=== PATIENT | female | born 1945 | race Caucasian/White ===

== ENCOUNTER → 2018-08-26 11:14 | Outpatient (CLI) | payer MEDICARE, OTHER, SELFPAY ==
--- NOTE | 2018-08-26 | DI.MG.S_ITS ---
BILATERAL DIGITAL SCREENING MAMMOGRAM 3D/2D WITH CAD: 08/26/2018 CLINICAL: Routine screening. Comparison is made to exams dated: 11/01/2016 mammogram, 07/28/2014 mammogram, and 12/22/2012 mammogram - [facility]. There are scattered fibroglandular elements in both breasts. Current study was also evaluated with a Computer Aided Detection (CAD) system. No significant masses, calcifications, or other findings are seen in either breast. There has been no significant interval change. IMPRESSION: NEGATIVE There is no mammographic evidence of malignancy. A 1 year screening mammogram is recommended. This exam was interpreted at Station ID: [id number]. NOTE: For mammograms, a report in lay terms will be sent to the patient. Approximately 15% of breast malignancies will not be visualized mammographically. In the management of a palpable breast mass, a negative mammogram must not discourage biopsy of a clinically suspicious lesion. Electronically Signed By: Ky marin/enrico:08/26/2018 12:43:01 letter sent: Normal Exam ACR BI-RADS Category 1: Negative 3341F
== END ==
PROVIDERS: Family Provider Internal Medicine; PCP Internal Medicine; Visit Provider Internal Medicine
DX: Z12.31 Encounter for screening mammogram for malignant neoplasm of breast (principal)
CPT/HCPCS: 77063; 77067

== ENCOUNTER → 2019-07-13 10:19 | Outpatient (CLI) | payer MEDICARE, OTHER, SELFPAY ==
--- NOTE | 2019-07-13 | DI.RAD.S_ITS ---
PROCEDURE: XR CHEST 2V INDICATIONS: ACUTE BRONCHITIS TECHNIQUE: 2 views of the chest were acquired. COMPARISON: [facility], , CHEST 2 VIEW, 10/17/2011, 9:19. FINDINGS: Surgical changes and devices: None. Lungs and pleura: Lungs are clear. No pleural effusions or pneumothorax. Mediastinum: Mediastinal contours are normal. Heart size is normal. Bones and chest wall: No suspicious bony abnormalities. Soft tissues appear unremarkable. IMPRESSION: No evidence acute pulmonary process. Dictated by: Julien Jean Baptiste M.D. on 07/13/2019 at 17:04 Approved by: Julien Jean Baptiste M.D. on 07/13/2019 at 17:05
== END ==
PROVIDERS: PCP Internal Medicine; Visit Provider Student in an Organized Health Care Education/Training Program
DX: J20.9 Acute bronchitis, unspecified (principal)
CPT/HCPCS: 71046

== ENCOUNTER → 2019-08-27 09:53 | Outpatient (CLI) | payer MEDICARE, OTHER, SELFPAY ==
--- NOTE | 2019-08-27 | DI.MG.S_ITS ---
BILATERAL DIGITAL SCREENING MAMMOGRAM 3D/2D WITH CAD: 08/27/2019 CLINICAL: Routine screening. Comparison is made to exams dated: 08/26/2018 mammogram, 11/01/2016 mammogram, and 07/28/2014 mammogram - [facility]. There are scattered fibroglandular elements in both breasts. Current study was also evaluated with a Computer Aided Detection (CAD) system. No significant masses, calcifications, or other findings are seen in either breast. There has been no significant interval change. IMPRESSION: NEGATIVE There is no mammographic evidence of malignancy. A 1 year screening mammogram is recommended. This exam was interpreted at Station ID: [id number]. NOTE: For mammograms, a report in lay terms will be sent to the patient. Approximately 15% of breast malignancies will not be visualized mammographically. In the management of a palpable breast mass, a negative mammogram must not discourage biopsy of a clinically suspicious lesion. Electronically Signed By: Ky marin/enrico:08/27/2019 18:26:13 letter sent: Normal Exam ACR BI-RADS Category 1: Negative 3341F
== END ==
PROVIDERS: PCP Student in an Organized Health Care Education/Training Program; Visit Provider Student in an Organized Health Care Education/Training Program
DX: Z12.31 Encounter for screening mammogram for malignant neoplasm of breast (principal)
CPT/HCPCS: 77063; 77067

== ENCOUNTER 2019-09-23 21:26 | Emergency (ER) | payer MEDICARE, OTHER, SELFPAY ==
--- NOTE | 2019-09-23 21:31 | ED.UPPEXIN ---
HPI - Extremity Injury (Upper) General Chief Complaint: Fall Stated Complaint: right arm injury, thinks broken. Time Seen by Provider: 09/23/19 21:31 Source: patient and family Mode of arrival: Wheelchair Limitations: no limitations History of Present Illness HPI narrative: This is a 74-year-old female who comes in with complaint of right upper extremity fracture. Patient was on her home. She states she had a couple drinks of champagne earlier today with family while celebrating together. She was walking through her [place] to go into the house when she slipped and fell forward. She has deformity of her right upper arm as well as an abrasion on her right knee. Patient does not think that she hit her head she denies neck pain or back pain. She denies chest pain. She does feel nauseated. Patient denies any medications other than estradiol which they are slowly weaning her off. She has not any aspirin, Plavix or other blood thinners. She has had shoulder surgery on the left with Dr. Obando. She denies any other surgeries or medical issues. She is accompanied by her . Carin Vazquez is her primary care. Related Data Home Medications Medication Instructions Recorded Confirmed ESTRADIOL (Estrace) 0 PO Q DAY #0 08/31/06 Previous Rx's Medication Instructions Recorded cephalexin [Keflex] 500 mg PO QID #40 cap 09/24/19 oxycodone-acetaminophen [Percocet] 1 tab PO Q4-6H PRN #20 tab 09/24/19 Allergies Allergy/AdvReac Type Severity Reaction Status Date / Time venlafaxine [From EFFEXOR] Allergy Mild nightmares Unverified 12/18/17 12:58 Review of Systems Review of Systems ROS Unobtainable: All systems reviewed & are unremarkable except as noted in HPI and below Patient History Social History Smoking Status: Former smoker Exam Narrative Exam Narrative: GEN: Patient appears in moderate distress. HEAD: No evidence of trauma, no raccoon/Delcid sign. NECK: Nontender, painless range of motion, trachea midline EYES: PERRLA, EOMI ENT: External inspection normal, trachea is midline, TM's are normal no hemotypanum, Nares are clear, no septal hematoma, no dental or oral injury, airway is normal and with normal occlusion, No bony tenderness RESP: Chest is nontender and has symmetric movement, no ecchymosis, breath sounds are normal no crackles, wheezes or rales CVS: Heart sounds are normal, no murmur noted, No JVD. ABG/GI: Nontender, soft, normal bowel sounds, no distention, no organomegaly, pelvic rock is negative. NEURO: Oriented AOx3, neuro is grossly intact, sensation and motor is normal all 4 extremities moving, cranial nerves II through XII are intact, GCS is 15 PSYCH: Normal mood and affect SKIN: Intact, warm and dry, no crepitus and without decubitus BACK: No CVA tenderness, no vertebral tenderness, no step-off's, no crepitus EXT: Patient has deformity of her right upper extremity mid humeral region patient able to lift the upper portion of the bone but the lower arm does not move with it, hips are nontender, patient has a abrasion/laceration of her right knee into the subcutaneous, do not see any bony involvement, patient has full range of motion without any bony tenderness, no pedal edema, normal color and temperature, normal range of motion of extremities with normal tendon exam except for right humerus. Patient has equal tyre retreader bilaterally 2+ radial pulses bilaterally. Patient has sensation to touch in all 5 fingers on the right as well as full extension and flexion, 2+ pulses in all four extremities Initial Vital Signs Initial Vital Signs: Vital Signs Temperature 96.9 F L 09/23/19 21:44 Pulse Rate 77 09/23/19 21:44 Respiratory Rate 18 09/23/19 21:44 Blood Pressure 166/111 H 09/23/19 21:44 Pulse Oximetry 98 09/23/19 21:44 Procedures Laceration Repair Laceration 1: Site: lower extremity (right knee) Size (cm): 2.4 Description: flap and irregular Depth: simple, single layer Local Anesthetic: lidocaine 1% Amount of anesthesia used (mL): 7 Pre-repair: wound explored, irrigated extensively and deep structures intact Skin layer closed with: nylon Size (cm): 4-0 Number of sutures: 8 Technique: simple, interrupted Scores GCS [place] coma scale eye opening: Spontaneous [place] coma scale verbal response: Orientated [place] coma scale motor response: Obey commands [place] coma scale total score: 15 Course Orders Ordered: ED Orders 09/23/19 21:40 XR humerus RT 2V Stat XR knee RT 3V Stat XR shoulder RT min 2V Stat Discontinued Medications Cefazolin Sodium (Keflex 250 Mg Prepack) 1 bottle MISC SEEINSTR ONE Stop: 09/24/19 00:37 Last Admin: 09/24/19 00:45 Dose: 500 mg Documented by: DANYEL Lidocaine/Sodium Bicarbonate (Buffered Lidocaine 10 Ml Syr) 10 ml INJ NOW ONE Stop: 09/23/19 23:55 Last Admin: 09/23/19 23:58 Dose: 10 ml Documented by: ISHA Morphine Sulfate (Morphine) 2 mg IV NOW ONE Stop: 09/23/19 21:42 Last Admin: 09/23/19 21:56 Dose: 2 mg Documented by: ISHA Morphine Sulfate (Morphine) 4 mg IV NOW ONE Stop: 09/23/19 22:43 Last Admin: 09/23/19 22:46 Dose: 4 mg Documented by: ISHA Ondansetron HCl (Zofran) 4 mg IV NOW ONE Stop: 09/23/19 21:42 Last Admin: 09/23/19 21:55 Dose: 4 mg Documented by: ISHA Oxycodone/Acetaminophen (Percocet 5/325) 2 tab PO NOW ONE Stop: 09/24/19 00:02 Last Admin: 09/24/19 00:09 Dose: 2 tab Documented by: COLLEENFARL Oxycodone/Acetaminophen (Endocet 5/325 Prepack) 1 bottle MISC SEEINSTR ONE Stop: 09/24/19 00:37 Last Admin: 09/24/19 00:45 Dose: 1 bottle Documented by: DANYEL Vital Signs Vital signs: Vital Signs - 8 hr 09/23/19 21:44 09/24/19 00:44 Temperature 96.9 F L Pulse Rate 77 82 Respiratory Rate 18 19 Blood Pressure 166/111 H Blood Pressure [Left Arm] 98/65 Pulse Oximetry 98 98 MDM - Extremity Injury (Upper) Imaging Data right shoulder xray: Radiologist's Impression: Virgen Martinez 74 F [address] [address] XRay Report Signed Patient: Virgen Martinez AMR#: [id number] : 1945cct:[id number] Age/Sex: 74 / FDate of Service: 09/23/19 Loc: ED Accession Number: [id number] Procedure: XR shoulder RT min 2V Ordering Provider: Claudine Narvaez D.O. PROCEDURE: XR SHOULDER RT MIN 2V INDICATIONS: knee laceration, fall TECHNIQUE: 2 views of the shoulder were acquired. COMPARISON: None. FINDINGS: Bones: Acute spiral fracture through proximal humeral shaft is seen with the medial and anterior displacement of mid to distal humeral shaft. No shoulder dislocation. Mild to moderate shoulder joint osteophytic changes are seen. No suspicious bony lesions. Visualized ribs appear intact. Soft tissues: No suspicious soft tissue calcifications. IMPRESSION: Acute proximal humeral shaft fracture. Shoulder joint osteoarthritis. No dislocation. Dictated by: Tarun Bowman M.D. on 09/23/2019 at 22:13 Approved by: Tarun Bowman M.D. on 09/23/2019 at 22:14 right humeral xray: Radiologist's Impression: [address] [address] XRay Report Signed Patient: Virgen Martinez AMR#: [id number] : 7Acct:[id number] Age/Sex: 74 / FDate of Service: 09/23/19 Loc: ED Accession Number: [id number] Procedure: XR humerus RT 2V Ordering Provider: Claudine Narvaez D.O. PROCEDURE: XR HUMERUS RT 2V INDICATIONS: knee laceration, fall TECHNIQUE: 2 views of the humerus were acquired. COMPARISON: None. FINDINGS: Bones: Acute spiral fracture through proximal to mid humeral shaft is seen with medial and overlapping of fracture site. No suspicious bony lesions. Soft tissues: No suspicious soft tissue calcifications. IMPRESSION: Acute displaced and slightly impacted spiral fracture involving right proximal to mid humeral shaft. Dictated by: Tarun Bowman M.D. on 09/23/2019 at 22:14 Approved by: Tarun Bowman M.D. on 09/23/2019 at 22:15 right knee xray: Radiologist's Impression: [address] [address] XRay Report Signed Patient: Virgen Martinez AMR#: [id number] : 7Acct:[id number] Age/Sex: 74 / FDate of Service: 09/23/19 Loc: ED Accession Number: [id number] Procedure: XR knee RT 3V Ordering Provider: Claudine Narvaez D.O. PROCEDURE: XR KNEE RT 3V INDICATIONS: knee laceration, fall TECHNIQUE: 3 views of the knee were acquired. COMPARISON: None. FINDINGS: Bones: No fractures or dislocations. No suspicious bony lesions. Soft tissues: No joint effusion. No suspicious soft tissue calcifications. IMPRESSION: No acute right knee fracture or dislocation. Dictated by: Tarun Bowman M.D. on 09/23/2019 at 22:15 Approved by: Tarun Bowman M.D. on 09/23/2019 at 22:15 [facility] Narrative Medical decision making narrative: Spoke with Dr. Zamora, plan for coaptation splint. Patient is neurovascularly intact pre and post splint placement. Patient is feeling uncomfortable but is motivated to return home. Given prepack for pain medication and Zofran as needed. And referral to orthopedic surgery. Patient's knee has an abrasion but also laceration. Patient had irrigation as well as sutures and started on antibiotics and wound appears slightly dirty, wound is deep, able to visualize a small amount of knee cap. Patient tolerated both splint and laceration repair well. Patient and I discussed she is high risk for infection with her knee needs to have close observation. Also that she needs to keep a close watch on her neurovascular status. This was also discussed with her . Patient is to call tomorrow for follow-up with Orthopedic surgery. Discharge Plan Departure Patient Disposition: Home Clinical Impression: Closed right humeral fracture, Laceration of knee, right Discharge Date/Time: 09/24/19 00:45 Instructions: DI for Humeral Fracture Activity Restrictions/Additional Instructions: Follow up with orthopedic surgery in the next 3-5 days for recheck. Call for an appointment. Take pain medication as prescribed, this medication can make you sleepy do not drive, perform hazardous activities or make any major decisions while taking this medication. You may take nausea medicine 1 tablet every 6 hours as needed for nausea, you may take this medication 20 minutes prior to pain medication if it makes you nauseated. Splint Care: Keep splint clean and dry. Elevated affected body part to decrease swelling. OK to use ice pack on the affected body part. Use for 15-20 minutes each time, for 5-6x per day. If you develop worsening pain, numbness, tingling, discoloration of the affected body part, loosen the splint by loosening the FORREST wrap, and either see your doctor for an urgent re-assessment, or return to the Emergency Department. Return to the Emergency Department for any new or worsening symptoms. Wound Care: Keep wound(s) clean and dry. Wash daily with soap and water only. Do not use over the counter products (alcohol or peroxide)on the wounds unless instructed by a physician. If wound condition worsens (increased/expanding redness, developing fluid blisters, or worsening pain), either contact your doctor for an urgent re-assessment , or return to the Emergency Department. Return to the Emergency Department for any new or worsening symptoms. Return to the ED, urgent care, or vist a primary care doctor for removal or suture or osorio in 7-10 days. Return if fever greater than 100.4 Fahrenheit, increased swelling, increasing pain or worsening symptoms such as increased discharge or spreading redness. Prescriptions: New cephalexin [Keflex] 500 mg capsule 500 mg PO QID Qty: 40 RF: 0 oxycodone-acetaminophen [Percocet] 5-325 mg tablet 1 tab PO Q4-6H PRN (Reason: pain) Qty: 20 RF: 0 No Action ESTRADIOL (Estrace) 0 PO Q DAY Qty: 0 RF: 0 Referrals: Carin Vazquez PA-C [Primary Care Provider] - Guzman Zamora MD [Physician] -
--- NOTE | 2019-09-23 21:40 | DI.RAD.S_ITS ---
PROCEDURE: XR SHOULDER RT MIN 2V INDICATIONS: knee laceration, fall TECHNIQUE: 2 views of the shoulder were acquired. COMPARISON: None. FINDINGS: Bones: Acute spiral fracture through proximal humeral shaft is seen with the medial and anterior displacement of mid to distal humeral shaft. No shoulder dislocation. Mild to moderate shoulder joint osteophytic changes are seen. No suspicious bony lesions. Visualized ribs appear intact. Soft tissues: No suspicious soft tissue calcifications. IMPRESSION: Acute proximal humeral shaft fracture. Shoulder joint osteoarthritis. No dislocation. Dictated by: Tarun Bowman M.D. on 09/23/2019 at 22:13 Approved by: Tarun Bowman M.D. on 09/23/2019 at 22:14
--- NOTE | 2019-09-23 21:40 | DI.RAD.S_ITS ---
PROCEDURE: XR KNEE RT 3V INDICATIONS: knee laceration, fall TECHNIQUE: 3 views of the knee were acquired. COMPARISON: None. FINDINGS: Bones: No fractures or dislocations. No suspicious bony lesions. Soft tissues: No joint effusion. No suspicious soft tissue calcifications. IMPRESSION: No acute right knee fracture or dislocation. Dictated by: Tarun Bowman M.D. on 09/23/2019 at 22:15 Approved by: Tarun Bowman M.D. on 09/23/2019 at 22:15
--- NOTE | 2019-09-23 21:40 | DI.RAD.S_ITS ---
PROCEDURE: XR HUMERUS RT 2V INDICATIONS: knee laceration, fall TECHNIQUE: 2 views of the humerus were acquired. COMPARISON: None. FINDINGS: Bones: Acute spiral fracture through proximal to mid humeral shaft is seen with medial and overlapping of fracture site. No suspicious bony lesions. Soft tissues: No suspicious soft tissue calcifications. IMPRESSION: Acute displaced and slightly impacted spiral fracture involving right proximal to mid humeral shaft. Dictated by: Tarun Bowman M.D. on 09/23/2019 at 22:14 Approved by: Tarun Bowman M.D. on 09/23/2019 at 22:15
[2019-09-23 21:44] VITALS: BP 166/111; PULSE 77; RESP 18; TEMP 36.1; O2SAT 98; BMI 24.2
[2019-09-23] MEDS: ONDANSETRON 4 MG/2 ML INJ IV (21:55)
[2019-09-23] MEDS: MORPHINE 2 MG/ML INJ IV (21:56)
[2019-09-23] MEDS: MORPHINE 4 MG/ML INJ IV (22:46)
[2019-09-23] MEDS: LIDO 1%/SOD BICARB 8.4% (10ML) 10 ML SYRINGE INJ (23:58)
[2019-09-24] MEDS: OXYCODONE/ACETAMINOPHEN 5/325 TABLET 2 TAB PO (00:09)
[2019-09-24 00:44] VITALS: BP 98/65; PULSE 82; RESP 19; O2SAT 98
[2019-09-24] MEDS: cephALEXin 250 MG PREPACK 1 BOTTLE MISC (00:45)
[2019-09-24] MEDS: OXYCODONE/APAP 5/325 PREPACK 1 BOTTLE MISC (00:45)
== END 2019-09-24 00:45 | disposition home or self-care (01) ==
PROVIDERS: Emergency Provider Emergency Medicine; PCP Student in an Organized Health Care Education/Training Program
DX: S42.301A Unspecified fracture of shaft of humerus, right arm, initial encounter for closed fracture (principal); S81.011A Laceration without foreign body, right knee, initial encounter; W01.0XXA Fall on same level from slipping, tripping and stumbling without subsequent striking against object, initial encounter
CPT/HCPCS: 12001; 36415; 73030; 73060; 73562; 96374; 96375; 96376; 99284; J2270; J2405

== ENCOUNTER → 2021-03-03 10:08 | Outpatient (CLI) | payer MEDICARE, OTHER, SELFPAY ==
--- NOTE | 2021-03-03 | DI.MG.S_ITS ---
BILATERAL DIGITAL SCREENING MAMMOGRAM 3D/2D WITH CAD: 03/03/2021 CLINICAL: Routine screening. Comparison is made to exams dated: 08/27/2019 mammogram, 08/26/2018 mammogram, and 11/01/2016 mammogram - . There are scattered fibroglandular elements in both breasts. Current study was also evaluated with a Computer Aided Detection (CAD) system. No significant masses, calcifications, or other findings are seen in either breast. There has been no significant interval change. IMPRESSION: NEGATIVE There is no mammographic evidence of malignancy. A 1 year screening mammogram is recommended. This exam was interpreted at Station ID: [id number]. NOTE: For mammograms, a report in lay terms will be sent to the patient. Approximately 15% of breast malignancies will not be visualized mammographically. In the management of a palpable breast mass, a negative mammogram must not discourage biopsy of a clinically suspicious lesion. Electronically Signed By: Rodolfo medina/enrico:03/03/2021 11:03:56 letter sent: Normal Exam ACR BI-RADS Category 1: Negative 3341F
--- NOTE | 2021-03-03 | DI.RAD.S_ITS ---
PROCEDURE: XR CHEST 2V INDICATIONS: COUGH TECHNIQUE: 2 views of the chest were acquired. COMPARISON: [facility], CR, XR CHEST 2V, 07/13/2019, 10:29. FINDINGS: Surgical changes and devices: None. Lungs and pleura: Lungs are clear. No pleural effusions or pneumothorax. Mediastinum: Mediastinal contours are normal. Heart size is normal. Bones and chest wall: Several healed left posterior lateral rib fractures. No suspicious bony abnormalities. Soft tissues appear unremarkable. IMPRESSION: No acute cardiopulmonary disease. Dictated by: Gerson Spears RR Interpreted: Anselmo Brooks MD on 03/03/2021 at 10:26 Transcribed by: ZOEY on 03/03/2021 at 10:27 Approved by: Anselmo Brooks M.D. on 03/03/2021 at 11:57
== END ==
PROVIDERS: PCP Student in an Organized Health Care Education/Training Program; Referring Provider Student in an Organized Health Care Education/Training Program; Visit Provider Student in an Organized Health Care Education/Training Program
DX: Z12.31 Encounter for screening mammogram for malignant neoplasm of breast (principal); R05 Cough
CPT/HCPCS: 71046; 77063; 77067

== ENCOUNTER → 2021-05-30 11:41 | Outpatient (CLI) | payer MEDICARE, OTHER, SELFPAY ==
[2021-05-30 12:14] LABS: COVID19 -Nasal RAPID Negative (Negative)
== END ==
PROVIDERS: PCP Student in an Organized Health Care Education/Training Program; Visit Provider Physician Assistant
DX: Z20.822 Contact with and (suspected) exposure to COVID-19 (principal)
CPT/HCPCS: 87635

== ENCOUNTER → 2021-05-30 12:20 | Outpatient (CLI) | payer MEDICARE, OTHER, SELFPAY ==
--- NOTE | 2021-05-30 12:24 | DI.RAD.S_ITS ---
PROCEDURE: XR CHEST 2V INDICATIONS: cough, wheezing, similar to prior PNA TECHNIQUE: 2 views of the chest were acquired. COMPARISON: [facility], CR, XR CHEST 2V, 03/03/2021, 10:11. FINDINGS: Surgical changes and devices: None. Lungs and pleura: Lungs are clear. No pleural effusions or pneumothorax. Mediastinum: Mediastinal contours are normal. Heart size is normal. Bones and chest wall: No suspicious bony abnormalities. Soft tissues appear unremarkable. IMPRESSION: No acute cardiopulmonary findings Approved by: Kian Balderas M.D. on 05/30/2021 at 11:46
== END ==
PROVIDERS: PCP Student in an Organized Health Care Education/Training Program; Referring Provider Physician Assistant; Visit Provider Physician Assistant
DX: R05 Cough (principal); R06.2 Wheezing; Z20.822 Contact with and (suspected) exposure to COVID-19
CPT/HCPCS: 71046; 87635

== ENCOUNTER → 2022-01-04 11:12 | Outpatient (CLI) | payer MEDICARE, OTHER, SELFPAY ==
--- NOTE | 2022-01-04 11:24 | DI.RAD.S_ITS ---
PROCEDURE: XR CHEST 2V INDICATIONS: cough TECHNIQUE: 2 views of the chest were acquired. COMPARISON: [facility], CR, XR CHEST 2V, 05/30/2021, 12:25. FINDINGS: Surgical changes and devices: None. Lungs and pleura: Lungs are clear. No pleural effusions or pneumothorax. Mediastinum: Mediastinal contours are normal. Heart size is normal. Bones and chest wall: No suspicious bony abnormalities. Soft tissues appear unremarkable. IMPRESSION: No evidence acute pulmonary process. Dictated by: Julien Jean Baptiste M.D. on 01/04/2022 at 11:40 Approved by: Julien Jean Baptiste M.D. on 01/04/2022 at 11:42
[2022-01-04 12:05] LABS: Influenza A - CEPHEID Flu A NEGATIVE (NEGATIVE); Influenza B - CEPHEID Flu B NEGATIVE (NEGATIVE)
[2022-01-04 12:32] LABS: COVID-19 CEPHEID PCR (VTM/NP) Negative (Negative)
== END ==
PROVIDERS: PCP Student in an Organized Health Care Education/Training Program; Referring Provider Nurse Practitioner Family; Visit Provider Nurse Practitioner Family
DX: R05.9 Cough, unspecified (principal); Z20.822 Contact with and (suspected) exposure to COVID-19
CPT/HCPCS: 0240U; 71046

== ENCOUNTER → 2022-12-27 09:02 | Outpatient (CLI) | payer MEDICARE, OTHER, SELFPAY ==
--- NOTE | 2022-12-27 09:03 | DI.RAD.S_ITS ---
PROCEDURE: XR CHEST 2V INDICATIONS: Cough TECHNIQUE: 2 views of the chest were acquired. COMPARISON: [facility], CR, XR CHEST 2V, 01/04/2022, 11:12. FINDINGS: Surgical changes and devices: None. Lungs and pleura: Lungs are clear. Probable nodular density in the right upper lung zone. No pleural effusions or pneumothorax. Mediastinum: Mediastinal contours are normal. Heart size is normal. Bones and chest wall: Old left 9th rib fracture. No suspicious bony abnormalities. Soft tissues appear unremarkable. IMPRESSION: 1. No acute cardiopulmonary disease. 2. Probable calcified nodule in the right upper lung zone. Recommend chest CT for further evaluation. Dictated by: Akira Hopper M.D. on 12/27/2022 at 12:45 Approved by: Akira Hopper M.D. on 12/27/2022 at 12:47
== END ==
PROVIDERS: PCP Student in an Organized Health Care Education/Training Program; Referring Provider Nurse Practitioner Family; Visit Provider Nurse Practitioner Family
DX: R05.9 Cough, unspecified (principal)
CPT/HCPCS: 71046

== ENCOUNTER → 2023-01-15 10:31 | Outpatient (CLI) | payer MEDICARE, OTHER, SELFPAY ==
--- NOTE | 2023-01-15 10:37 | DI.CT.S_ITS ---
PROCEDURE: CT CHEST WO CON INDICATIONS: Solitary pulmonary nodule TECHNIQUE: Noncontrast 5 mm thick sections acquired from the pulmonary apices to the posterior costophrenic angles. 1 mm lung window, 5 mm thick coronal and sagittal and 7 mm axial MIP reformats were then acquired. For radiation dose reduction, the following was used: automated exposure control, adjustment of mA and/or kV according to patient size. COMPARISON: [facility], CR, XR CHEST 2V, 12/27/2022, 9:25. FINDINGS: Lungs and pleura: Few small pulmonary nodules present, examples include: -right upper lobe 2 mm ground-glass nodule (3/44). -subpleural right upper lobe possible nodule versus scarring, 6 mm (3/78). -left lower lobe: 2 mm nodule (3/275). No consolidation or pleural effusion. Mediastinum: No pericardial effusion. Thoracic aorta and central pulmonary arteries are normal in size. Esophagus is normal in caliber. Bones and chest wall: Multilevel degenerative change of the visualized spine. No axillary or supraclavicular adenopathy by size criteria. Subacute or remote fracture right anterolateral 6th rib fracture. Other remote rib fractures also present. Abdomen: Partially imaged left hydronephrosis and or renal sinus cysts. IMPRESSION: 1. Several small pulmonary nodules are present. Follow-up chest CT is recommended in 3-6 months per Fleischner society guidelines. 2. Subacute or remote right anterolateral 6th rib fracture. 3. Partially imaged left hydronephrosis and/or renal sinus cysts. Further evaluation could be performed with renal ultrasound or CT IVP. Dictated by: Rodolfo Salgado M.D. on 01/15/2023 at 16:30 Approved by: Rodolfo Salgado M.D. on 01/15/2023 at 16:42
== END ==
PROVIDERS: PCP Student in an Organized Health Care Education/Training Program; Referring Provider Student in an Organized Health Care Education/Training Program; Visit Provider Student in an Organized Health Care Education/Training Program
DX: R91.8 Other nonspecific abnormal finding of lung field (principal); S22.41XS Multiple fractures of ribs, right side, sequela
CPT/HCPCS: 71250

== ENCOUNTER → 2023-01-28 15:15 | Outpatient (CLI) | payer MEDICARE, OTHER, SELFPAY ==
--- NOTE | 2023-01-28 | DI.US.S_ITS ---
PROCEDURE: US RENAL COMPLETE INDICATIONS: FOLLOW UP CT - LEFT KIDNEY CYST VERSUS HYDRONEPHROSIS TECHNIQUE: Real-time scanning was performed of the kidneys and bladder, with image documentation. COMPARISON: [facility], CT, CT CHEST WO CON, 01/15/2023, 10:43. FINDINGS: Kidneys: Kidneys are normal in size. Right kidney measures 10.8 cm long; left kidney measures 10.9 cm long. Right renal cortical thickness is 1.0 cm; left renal cortical thickness is 1.4 cm. Renal cortical echotexture is normal. No hydronephrosis or nephrolithiasis. There are is a focus of decreased echogenicity in the right superolateral aspect of the right kidney measuring 8 x 5 x 5 mm. In the inferior aspect of the right kidney there is a focus of decreased echogenicity with posterior wall calcification measuring 22 x 26 x 21 mm. Smaller simple parapelvic cysts are present. There is mild right hydronephrosis, unresolved on pro spoiled images. Focus of decreased echogenicity within the mid lateral left kidney is present measuring 2 x 2 x 2 mm with similar smaller parapelvic foci. Bladder: Pre-void bladder volume is 128 mL. Post-void residual is 0 mL. Pre-void images demonstrate no intraluminal masses or stones. On pre-void images, neither ureteral jets are noted with color Doppler interrogation. (Of note, ureteral jets may not be detectable in up to 25% of cases due to insufficient differences in specific gravity between ureteral and bladder urine). Miscellaneous: No free pelvic fluid. IMPRESSION: Persistent appearance of mild right hydronephrosis despite postvoid imaging. Bilateral renal cysts appearing simple or with septation. No additional follow-up is recommended. Dictated by: Deandra Sam M.D. on 01/28/2023 at 17:11 Approved by: Deandra Sam M.D. on 01/28/2023 at 17:14
== END ==
PROVIDERS: PCP Student in an Organized Health Care Education/Training Program; Referring Provider Student in an Organized Health Care Education/Training Program; Visit Provider Student in an Organized Health Care Education/Training Program
DX: N13.30 Unspecified hydronephrosis (principal)
CPT/HCPCS: 76770

== ENCOUNTER → 2023-07-29 14:03 | Outpatient (CLI) | payer MEDICARE, OTHER, SELFPAY ==
--- NOTE | 2023-07-29 | DI.CT.S_ITS ---
PROCEDURE: CT CHEST WO CON INDICATIONS: Solitary pulmonary nodule TECHNIQUE: Noncontrast 5 mm thick sections acquired from the pulmonary apices to the posterior costophrenic angles. 1 mm lung window, 5 mm thick coronal and sagittal and 7 mm axial MIP reformats were then acquired. For radiation dose reduction, the following was used: automated exposure control, adjustment of mA and/or kV according to patient size. COMPARISON: [facility], CT, CT CHEST WO CON, 01/15/2023, 10:43. FINDINGS: Image quality: Excellent. Lungs and pleura: No acute air space opacities. No pleural effusions or pneumothorax. Central and peripheral airways are patent and normal in caliber. Resolved 6-7 mm subpleural nodularity in the posterior right upper lobe. Stable scattered pulmonary micro nodules. For instance, the 2 mm solid nodule in the right upper lobe (series 3, image 57) and the 2 mm solid nodule in the left lower lobe (series 3, image 286). Mediastinum: Heart size is normal. No pericardial effusion. No mediastinal adenopathy by size criteria. Thoracic aorta and central pulmonary arteries are normal in size. Esophagus is normal in caliber. No hiatal hernia. Bones and chest wall: No suspicious bony lesions. No vertebral body compression fractures. No axillary or supraclavicular adenopathy by size criteria. No thyroid nodules which require sonographic follow up, per consensus guidelines. Abdomen: Visualized upper abdominal solid organs and bowel loops appear normal in the absence of contrast. IMPRESSION: Resolved 6-7 mm juxtapleural nodule in the right upper lobe. Stable pulmonary micro nodules. A total of 1 year follow-up (as of 01/15/2023) is recommended if at high risk of lung cancer, per Fleischner society guidelines. Dictated by: Apolinar Meredith M.D. on 07/29/2023 at 16:24 Approved by: Apolinar Meredith M.D. on 07/29/2023 at 16:28
== END ==
PROVIDERS: PCP Student in an Organized Health Care Education/Training Program; Referring Provider Student in an Organized Health Care Education/Training Program; Visit Provider Student in an Organized Health Care Education/Training Program
DX: R91.8 Other nonspecific abnormal finding of lung field (principal)
CPT/HCPCS: 71250

== ENCOUNTER 2023-11-22 14:00 | Day surgery (SDC) | payer MEDICARE, OTHER, SELFPAY ==
[2023-11-22] MEDS: LACTATED RINGERS 1,000 ML 42 ML IV (14:14)
[2023-11-22 14:17] VITALS: BP 155/74; PULSE 70; RESP 21; TEMP 36.6; O2SAT 100
--- NOTE | 2023-11-22 14:50 | PM.PREOP ---
Pre-operative Note Interval Note History & Physical reviewed/Exam performed by Physician: Yes Changes to H&P: No
[2023-11-22 15:25] VITALS: BP 143/79; PULSE 70; RESP 16; TEMP 36.3; O2SAT 98
--- NOTE | 2023-11-22 15:25 | P.OP.COLON_ITS ---
Operative Date/Time/Diagnoses Date of procedure: 11/22/23 Time of procedure: 15:25 Pre-op diagnosis: Rectal bleeding Procedure & Clinicians Study performed: Diagnostic colonoscopy Hemorrhoidal banding Same procedure as scheduled: Yes Indications: 78-year-old woman with rectal bleeding here for diagnostic colonoscopy and hemorrhoidal banding Surgeon: Konstantin Barfield Procedure Notes Procedure in detail: The history and physical was performed/updated and the patient is ASA class is 2. The procedure was discussed in detail with the patient. Potential risks complications including infection, bleeding, missed diagnosis, perforation, need for surgery, and were explained. Their questions were answered and informed consent was obtained. Patient was brought to the procedure room and placed standard monitoring equipment. The patient's vital signs were monitored continuously throughout the entire procedure. Prior to starting time-out was performed. The patient was placed in the left lateral recumbent position. Procedural sedation was administered by anesthesia. Examination began with a thorough inspection of the perianal area there was no evidence of fissures, fistulae, external hemorrhoids or cutaneous malignancy. The colonoscopy scope was then placed into the anal canal and was advanced to the cecum, which was identified by the ileocecal valve, the appendiceal orifice and the confluence of the taenia. The scope was then slowly withdrawn examining colon thoroughly in all directions, irrigating it of any residual stool. The scope was retroflexed within the rectum The patient tolerated the procedure well. They will be discharged once criteria are met. The prep was of fair quality. The withdrawl time was 7 minutes. FINDINGS * No colonic masses polyps or inflammation * Grade 2 internal hemorrhoids Following completion of the colonoscope the anoscope was inserted. Exam demonstrated grade 2 internal hemorrhoids. The left lateral and right posterior columns were each grasped elevated using suction and then doubly ligated at their base. She tolerated the procedure well and was transferred to recovery in stable condition. Specimen(s): none sent Impression: Internal hemorrhoids Post-procedure Recommendations: High fiber diet Plan for aftercare: Week follow up Disposition: same day surgery
[2023-11-22 15:30] VITALS: BP 134/86; PULSE 72; RESP 17; O2SAT 98
[2023-11-22 15:37] VITALS: BP 155/84; PULSE 68; RESP 16; O2SAT 98
== END 2023-11-22 15:50 | disposition home or self-care (01) ==
PROVIDERS: PCP Student in an Organized Health Care Education/Training Program; Referring Provider Surgery; Visit Provider Surgery
PROC: 0DJD8ZZ Inspection of Lower Intestinal Tract, Via Natural or Artificial Opening Endoscopic (ICD-10-PCS; CPT 45378; principal; 2023-11-22 15:30)
DX: K62.5 Hemorrhage of anus and rectum (principal); K64.1 Second degree hemorrhoids
CPT/HCPCS: 45378; 46221; J1885; J2704

== ENCOUNTER → 2024-06-30 10:17 | Outpatient (CLI) | payer MEDICARE, OTHER, SELFPAY ==
--- NOTE | 2024-06-30 10:19 | DI.CT.S_ITS ---
PROCEDURE: CT CHEST WO CON INDICATIONS: LUNG NODULES TECHNIQUE: Noncontrast 5 mm thick sections acquired from the pulmonary apices to the posterior costophrenic angles. 1 mm lung window, 5 mm thick coronal and sagittal and 7 mm axial MIP reformats were then acquired. For radiation dose reduction, the following was used: automated exposure control, adjustment of mA and/or kV according to patient size. COMPARISON: [facility], US, US RENAL COMPLETE, 01/28/2023, 15:36. [facility], CT, CT CHEST WO CON, 01/15/2023, 10:43. FINDINGS: Image quality: Diagnostic. Lower Neck: No enlarged lymph nodes. Thyroid: No thyroid nodules which require sonographic follow up, per consensus guidelines. Axillae: No enlarged lymph nodes. Chest Wall: Unremarkable. Bones: Unremarkable. Lungs and Pleura: No pneumothorax or pleural effusions. The previously seen 6 mm nodule within the right upper lobe posteriorly has resolved. Remaining pulmonary nodules are unchanged. For example, no change in the 2 mm subpleural nodule within the right upper lobe laterally (image 16). No new pulmonary nodules. Heart: Heart size is normal. No pericardial effusion. Calcification of the coronary vasculature. Thoracic Vessels: The aorta and pulmonary arteries demonstrate normal size. Mediastinum and Catherine: No enlarged lymph nodes. Esophagus: No wall thickening. No hiatal hernia. Upper Abdomen: Visualized upper abdomen solid organs and bowel loops appear normal. IMPRESSION: 1. Resolution of previously seen right upper lobe pulmonary nodule. Otherwise, no change in small bilateral pulmonary nodules. No evidence of malignancy. 2. Coronary artery disease. Dictated by: Roland Ramon M.D. on 06/30/2024 at 11:35 Approved by: Roland Ramon M.D. on 06/30/2024 at 11:41
== END ==
LOC: CT 10:18
PROVIDERS: PCP Physician Assistant; Referring Provider Physician Assistant; Visit Provider Physician Assistant
DX: I25.10 Atherosclerotic heart disease of native coronary artery without angina pectoris (principal); R91.8 Other nonspecific abnormal finding of lung field
CPT/HCPCS: 71250

== ENCOUNTER 2024-07-26 12:57 | Inpatient (IN) | payer MEDICARE, OTHER, SELFPAY ==
[2024-07-26] VITALS (66 sets, daily range): BP systolic 82–140; BP diastolic 50–102; PULSE 57–159; RESP 13–51; TEMP 36.6–37; O2SAT 93–100; BMI 22.6
--- NOTE | 2024-07-26 13:00 | ED.GENADULT ---
HPI - General Adult General Chief complaint: Arrhythmia/Palpitations Stated complaint: N/V Time Seen by Provider: 07/26/24 12:59 Source: patient, family and EMS Mode of arrival: EMS Limitations: no limitations History of Present Illness HPI narrative: Patient is a 79-year-old female. No history of atrial fibrillation. Not on anticoagulation. Is on statin. Here for evaluation of 3-4 days of dizziness. She states she has had vertigo in the past but this feels different than that. It occasionally has episodes where she feels like the room is spinning but a lot of the time it is just more of an unsteadiness. No chest pain, palpitations or shortness of breath. She was also been vomiting. No diarrhea. states that this morning the patient was having presyncopal/syncopal episodes which is why EMS was called. Patient was found to have an irregular heart rate 110-140 by EMS. She was given diltiazem. Upon arrival here in the emergency department patient was an obvious AFib with a heart rate in the 80s. She states she still feels ?dizzy? while lying in bed. It was not a vertigo sensation. Related Data Home Medications Medication Instructions Recorded Confirmed VITAMIN D PO 11/07/23 atorvastatin 20 mg tablet 20 mg PO DAILY 11/07/23 11/22/23 brimonidine 0.2 % eye drops drp EYE-BOTH 11/07/23 11/07/23 calcium carbonate [Calcium 500] PO 11/07/23 11/07/23 timolol 0.5 % eye drops drp EYE-BOTH DAILY 11/07/23 11/07/23 Previous Rx's Medication Instructions Recorded inhalational spacing device #1 ea 12/27/22 (Aerochamber MV spacer) acetaminophen 325 mg capsule 650 mg (2 x 325 mg) PO QID PRN 11/22/23 (Tylenol) pain #60 caps docusate sodium 100 mg capsule 100 mg PO BID #30 caps 11/22/23 (Colace) ibuprofen 200 mg tablet 400 mg (2 x 200 mg) PO Q6H #60 tabs 11/22/23 wheat dextrin 3 gram/3.8 gram oral 3 g PO BID #144 grams 11/22/23 powder (Benefiber Sugar Free (dextrin)) Allergies Allergy/AdvReac Type Severity Reaction Status Date / Time venlafaxine [From EFFEXOR] Allergy Mild nightmares Verified 07/26/24 13:37 Review of Systems Review of Systems ROS Unobtainable: All systems reviewed & are unremarkable except as noted in HPI and below Patient History Social History marital status: details: ALSO, LIVES WITH ADULT SON AND HIS . household members: spouse lives independently: Yes occupational status: previously employed Smoking Status: Former smoker alcohol intake: current substance use type: does not use Smoking Status: Former smoker Substance Use Type: does not use Exam Initial Vital Signs Initial Vital Signs: Vital Signs Pulse Rate 57 L 07/26/24 12:52 Pulse Oximetry 95 07/26/24 12:52 Const General: cooperative, comfortable and No ill appearing HENMT Head: normal to inspection and normocephalic Resp Effort & Inspection: normal respiratory effort Auscultation: clear to auscultation bilaterally Cardio Rate: regular rate Rhythm: abnormal rhythm GI Inspection: normal to inspection and non-distended Skin General: no rashes or lesions noted Neuro General: patient alert, patient awake, patient oriented x3 and moves all extremities Extrem General: No edema Course Orders Ordered: ED Orders 07/26/24 12:09 Complete Blood Count AUTO DIFF Stat PTT Partial Thromboplastin Mike Stat Prothrombin Time INR Stat 07/26/24 13:01 XR chest 1V Stat EKG-12 Lead Stat 07/26/24 14:10 Comprehensive Metabolic Panel Stat Lipase Stat Magnesium Stat Troponin & CK Cardiac Panel Stat Sodium Chloride (Normal Saline 0.9%) 1,000 mls @ 125 mls/hr IV CONT AUBREY Last Infusion: 07/26/24 13:56 Dose: Infused Documented By: Admin: 07/26/24 13:20 Dose: 125 mls/hr Documented By: ALINE Diltiazem HCl 125 mg/ Sodium (Chloride) 125 mls @ 5 mls/hr IV TITRATE AUBREY; Protocol Last Titration: 07/26/24 15:35 Dose: 12.5 mg/hr, 12.5 mls/hr Documented By: Titration: 07/26/24 15:05 Dose: 10 mg/hr, 10 mls/hr Documented By: Titration: 07/26/24 14:35 Dose: 7.5 mg/hr, 7.5 mls/hr Documented By: Admin: 07/26/24 14:10 Dose: 5 mg/hr, 5 mls/hr Documented By: ALINE Sodium Chloride (Normal Saline 0.9%) 1,000 mls @ 125 mls/hr IV CONT AUBREY Last Admin: 07/26/24 13:58 Dose: 125 mls/hr Documented By: ALINE Discontinued Medications Metoprolol Succinate (Metoprolol Er 25 Mg Tablet) 25 mg PO NOW ONE Stop: 07/26/24 13:03 Last Admin: 07/26/24 13:21 Dose: 25 mg Documented By: ALINE Vital Signs Vital signs: Vital Signs - 8 hr 07/26/24 12:52 07/26/24 12:54 07/26/24 12:56 Pulse Rate 57 L 98 H Respiratory Rate 22 Blood Pressure 115/70 115/70 Pulse Oximetry 95 98 Oxygen Delivery Method Room Air 07/26/24 12:56 07/26/24 13:00 07/26/24 13:10 Pulse Rate 93 H 83 Respiratory Rate 15 19 Blood Pressure 113/65 Pulse Oximetry 95 Oxygen Delivery Method 07/26/24 13:10 07/26/24 13:15 07/26/24 13:15 Pulse Rate 87 87 Respiratory Rate 14 20 Blood Pressure 133/63 Pulse Oximetry 94 93 Oxygen Delivery Method Room Air 07/26/24 13:21 07/26/24 13:30 07/26/24 13:30 Pulse Rate 140 H 123 H Respiratory Rate 15 Blood Pressure 133/63 113/61 Pulse Oximetry 100 Oxygen Delivery Method 07/26/24 13:46 07/26/24 13:46 07/26/24 13:48 Pulse Rate 138 H 140 H Respiratory Rate 14 17 Blood Pressure 82/50 L Pulse Oximetry 99 95 Oxygen Delivery Method 07/26/24 13:48 07/26/24 13:50 07/26/24 13:50 Pulse Rate 134 H Respiratory Rate 20 Blood Pressure 98/53 L 126/88 Pulse Oximetry 95 Oxygen Delivery Method 07/26/24 13:55 07/26/24 14:00 07/26/24 14:00 Pulse Rate 145 H 145 H Respiratory Rate 23 Blood Pressure 126/88 138/71 Pulse Oximetry 97 Oxygen Delivery Method 07/26/24 14:10 07/26/24 14:10 07/26/24 14:10 Pulse Rate 145 H 134 H Respiratory Rate 22 Blood Pressure 126/88 140/92 H Pulse Oximetry 100 Oxygen Delivery Method 07/26/24 14:20 07/26/24 14:20 07/26/24 14:30 Pulse Rate 146 H 144 H Respiratory Rate 17 18 Blood Pressure 138/98 H Pulse Oximetry 99 100 Oxygen Delivery Method 07/26/24 14:30 07/26/24 14:40 07/26/24 14:40 Pulse Rate 147 H Respiratory Rate 19 Blood Pressure 106/65 105/62 Pulse Oximetry 100 Oxygen Delivery Method 07/26/24 14:51 07/26/24 14:51 07/26/24 15:00 Pulse Rate 144 H 148 H Respiratory Rate 19 18 Blood Pressure 117/102 H Pulse Oximetry 100 96 Oxygen Delivery Method 07/26/24 15:00 07/26/24 15:10 07/26/24 15:10 Pulse Rate 147 H Respiratory Rate 19 Blood Pressure 133/84 112/59 L Pulse Oximetry 99 Oxygen Delivery Method 07/26/24 15:20 07/26/24 15:20 Pulse Rate 148 H Respiratory Rate 18 Blood Pressure 101/73 Pulse Oximetry 97 Oxygen Delivery Method Medical Decision Making Lab Data Lab results reviewed: Yes I reviewed the patient's lab results. 07/26/24 12:09 07/26/24 14:10 Labs: Lab Results 07/26/24 07/26/24 Range/Units 12:09 14:10 WBC 12.3 H (4.5-11.0) X10^3/uL RBC 4.47 (4.0-5.2) X10^6/uL Hgb 13.8 (12.0-16.0) g/dL Hct 41.4 (36-46) % MCV 92.5 (80-100) fL MCH 30.9 (26-34) PG MCHC 33.4 (30-36) % RDW 13.8 (11.6-14.8) % Plt Count 266 (150-400) X10^3/uL Neut % (Auto) 73.7 (50-75) % Lymph % (Auto) 17.0 L (25-40) % [place] % (Auto) 8.3 (3-14) % Eos % (Auto) 0.3 L (2-4) % Baso % (Auto) 0.7 (0-2) % Neut # (Auto) 9100 H (4416-6238) /uL Lymph # (Auto) 2100 (9136-7035) /uL [place] # (Auto) 1000 H (0-900) /uL Eos # (Auto) 0 (0-450) /uL Baso # (Auto) 100 (0-100) /uL PT 12.0 (9.4-12.5) SECONDS INR 1.1 (0.9-1.3) APTT 18 L (25.1-36.5) SECONDS Sodium 139 (137-145) mmol/L Potassium 4.0 (3.4-5.1) mmol/L Chloride 107 (98-107) mmol/L Carbon Dioxide 24 (22-32) mmol/L BUN 26 H (7-17) mg/dL Creatinine 0.77 (0.52-1.04) mg/dL Estimated GFR > 60 (>60) mL/min BUN/Creatinine Ratio 33.8 H (6-22) Glucose 110 (80-110) mg/dL Calcium 9.5 (8.4-10.2) mg/dL Magnesium 2.0 (1.6-2.3) mg/dL Total Bilirubin 1.1 (0.2-1.3) mg/dL AST 36 (14-36) IU/L ALT 25 (<35) IU/L Alkaline Phosphatase 67 (38-126) U/L Total Creatine Kinase 52 (30-135) U/L Troponin I 0.120 H (0.01-0.034) ng/mL Total Protein 6.5 (6.3-8.2) g/dL Albumin 4.1 (3.5-5.0) g/dL Globulin 2.4 (1.7-4.1) g/dL Albumin/Globulin Ratio 1.7 (1.0-2.8) Lipase 70 (23-300) U/L Imaging Data Chest x-ray: Radiologist's Impression: PROCEDURE: XR CHEST 1V INDICATIONS: Atrial fibrillation TECHNIQUE: One view of the chest was acquired. COMPARISON: [facility], , XR CHEST 2V, 12/27/2022, 9:25. FINDINGS: Surgical changes and devices: None. Lungs and pleura: There is hyperinflation and chronic interstitial changes without focal infiltrate, pleural effusion or pneumothorax. Mediastinum: Mediastinal contours appear normal. Heart size is normal. Bones and chest wall: No suspicious bony lesions. Overlying soft tissues appear unremarkable. IMPRESSION: No acute cardiopulmonary abnormality is seen. ECG Data Interpretation: Atrial fibrillation Ventricular rate of [address] T wave changes MDM Narrative Medical decision making narrative: Patient denies chest pain or palpitations. No history of atrial fibrillation not on anticoagulation. Received Cardizem by EMS prior to arrival. This did improve her heart rate down into the 70s and she appears to be an atrial flutter/fib. Patient was given an oral dose of metoprolol however her heart rate returned to the 140s and was most consistent at this rate. She was then started on a Cardizem drip. Electrolytes are unremarkable. No specific source of infection found. Troponin is elevated however I suspect that this is rate related changes. Chest x-ray is unremarkable. I did discuss the case with Dr. ren on-call for cardiology who recommended admission to the hospital, rate control, trending troponins and obtaining an echocardiogram. Discussed the case with Dr. Paredes hospitalist on-call who will admit. Discussed the need for admission with the patient who expressed understanding and agreement with plan. Discharge Plan Departure Patient Disposition: Admitted As Inpatient Clinical Impression: Atrial fibrillation with RVR Admit Date/Time: 07/26/24 15:28 Admit Provider: Lauri Paredes V
--- NOTE | 2024-07-26 13:01 | EKG_ITS ---
[facility] [address] [place] [id number] Test Date: 2024-07-26 Pat Name: Virgen Martinez Department: Room: Gender: Female Sonography Technician: : 1945 Requested By: Order Number: [id number] Reading MD: Oneal De La Rosa Measurements Intervals [place] Rate: 72 P: [place]: QRS: 16 QRSD: 84 T: -80 QT: 404 QTc: 442 Interpretive Statements Atrial fibrillation ST & T wave abnormality, consider inferior ischemia ST & T wave abnormality, consider anterolateral ischemia Electronically Signed On 07-29-2024 19:01:47 PST by Oneal De La Rosa
--- NOTE | 2024-07-26 13:01 | DI.RAD.S_ITS ---
PROCEDURE: XR CHEST 1V INDICATIONS: Atrial fibrillation TECHNIQUE: One view of the chest was acquired. COMPARISON: [facility], CR, XR CHEST 2V, 12/27/2022, 9:25. FINDINGS: Surgical changes and devices: None. Lungs and pleura: There is hyperinflation and chronic interstitial changes without focal infiltrate, pleural effusion or pneumothorax. Mediastinum: Mediastinal contours appear normal. Heart size is normal. Bones and chest wall: No suspicious bony lesions. Overlying soft tissues appear unremarkable. IMPRESSION: No acute cardiopulmonary abnormality is seen. Approved by: Kian Balderas M.D. on 07/26/2024 at 12:54
[2024-07-26 13:15] LABS: Add Manual Diff / Slide Review NO; Basophils Absolute Auto 100 /uL (0-100); Basophils Percent Auto 0.7 % (0-2); Eosinophils Absolute Auto 0 /uL (0-450); Eosinophils Percent Auto 0.3 % (2-4); Hematocrit 41.4 % (36-46); Hemoglobin 13.8 g/dL (12.0-16.0); Lymphocytes Absolute Auto 2100 /uL (1100-4500); Mean Corpuscular HGB Conc 33.4 % (30-36); Mean Corpuscular Hemoglobin 30.9 PG (26-34); Mean Corpuscular Volume 92.5 fL (80-100); Monocytes Absolute Auto 1000 /uL (0-900); Monocytes Percent Auto 8.3 % (3-14); Neutrophils Absolute Auto 9100 /uL (1500-7000); Neutrophils Percent Auto 73.7 % (50-75); Platelet Count 266 X10^3/uL (150-400); Red Blood Cell Count 4.47 X10^6/uL (4.0-5.2); Red Cell Distribution Width 13.8 % (11.6-14.8); White Blood Cell Count 12.3 X10^3/uL (4.5-11.0)
[2024-07-26 13:17] LABS: INR 1.1 (0.9-1.3)
[2024-07-26 13:19] LABS: PTT Partial Thromboplastin Tim 18 SECONDS (25.1-36.5)
[2024-07-26] MEDS: SODIUM CHLORIDE 0.9% 1,000 ML 125 ML IV ×2 (13:20→13:58)
[2024-07-26] MEDS: METOPROLOL ER 25 MG TABLET PO (13:21)
[2024-07-26] MEDS: dilTIAZem 125 MG in SODIUM CHLORIDE 0.9% 100 ML IV (14:10)
[2024-07-26 14:32] LABS: Alanine Aminotransferase 25 IU/L (<35); Albumin 4.1 g/dL (3.5-5.0); Albumin Globulin Ratio 1.7 (1.0-2.8); Alkaline Phosphatase 67 U/L (38-126); Aspartate Aminotransferase 36 IU/L (14-36); BUN Creatinine Ratio 33.8 (6-22); Bilirubin Total 1.1 mg/dL (0.2-1.3); Blood Urea Nitrogen 26 mg/dL (7-17); Calcium 9.5 mg/dL (8.4-10.2); Carbon Dioxide 24 mmol/L (22-32); Chloride 107 mmol/L (98-107); Creatine Kinase 52 U/L (30-135); Estimated Glomerular Filt Rate > 60 mL/min (>60); Globulin 2.4 g/dL (1.7-4.1); Glucose 110 mg/dL (80-110); HEMOLYSIS 27 (0-50); Lipase 70 U/L (23-300); Sodium 139 mmol/L (137-145); Total Protein 6.5 g/dL (6.3-8.2)
--- NOTE | 2024-07-26 17:00 | PM.HP.1 ---
History of Present Illness History of Present Illness Date Patient Seen: 07/26/24 Time Patient Seen: 17:10 Chief complaint: N/V Narrative: 79-year-old woman under the primary care of Fern Mayes PA-C reports 3-4 days of dizziness, nausea and vomiting. She notes a history of intermittent atrial fibrillation going back 20 years, with the impression that she gets an episode every few weeks, or sometimes even a few times a week with a sense of palpitations. She also has episodic vertigo episodes and states that this started out like one of her vertigo episodes. Symptoms worsened today and she felt lightheaded and dizzy and passed out briefly. Paramedics called and found her heart rate to be irregular in the 110-140 range. She was given IV diltiazem and upon arrival on monitored she was in atrial fibrillation with heart rate in the 80s. She continued to report dizziness. Heart rate increased and she was given IV metoprolol which failed to improve heart rate, and was started on IV diltiazem infusion and admitted for further management and evaluation. She denies chest pain, shortness for breath, abdominal pain, hematemesis, melena, hematochezia or history of bleeding problems. She takes ibuprofen 200 mg 3 times daily for chronic back pain and arthritis. [facility] Medical History Hyperlipemia Paroxysmal atrial fibrillation History of melanoma Surgical History H/O: hysterectomy Social History marital status: details: ALSO, LIVES WITH ADULT SON AND HIS . household members: spouse lives independently: Yes occupational status: previously employed Smoking Status: Former smoker alcohol intake: current substance use type: does not use Meds Home Medications and Allergies Home Medications Medication Instructions Recorded Confirmed Type atorvastatin 20 mg tablet 20 mg PO BEDTIME 11/07/23 07/26/24 History timolol 0.5 % eye drops 1 drp EYE-BOTH BID 11/07/23 07/26/24 History ibuprofen 200 mg tablet 600 mg PO DAILY 07/26/24 07/26/24 History Allergies Allergy/AdvReac Type Severity Reaction Status Date / Time venlafaxine [From EFFEXOR] Allergy Mild nightmares Verified 07/26/24 13:37 Review of Systems Review of Systems ROS: Yes All systems reviewed with the patient and are negative except as otherwise documented Exam Vital Signs (past 8 hours): - 07/26/24 12:52 07/26/24 12:54 07/26/24 12:56 Pulse Rate 57 L 98 H Respiratory Rate 22 Blood Pressure 115/70 115/70 Pulse Oximetry 95 98 Oxygen Delivery Method Room Air 07/26/24 12:56 07/26/24 13:00 07/26/24 13:10 Pulse Rate 93 H 83 Respiratory Rate 15 19 Blood Pressure 113/65 Pulse Oximetry 95 Oxygen Delivery Method 07/26/24 13:10 07/26/24 13:15 07/26/24 13:15 Pulse Rate 87 87 Respiratory Rate 14 20 Blood Pressure 133/63 Pulse Oximetry 94 93 Oxygen Delivery Method Room Air 07/26/24 13:21 07/26/24 13:30 07/26/24 13:30 Pulse Rate 140 H 123 H Respiratory Rate 15 Blood Pressure 133/63 113/61 Pulse Oximetry 100 Oxygen Delivery Method 07/26/24 13:46 07/26/24 13:46 07/26/24 13:48 Pulse Rate 138 H 140 H Respiratory Rate 14 17 Blood Pressure 82/50 L Pulse Oximetry 99 95 Oxygen Delivery Method 07/26/24 13:48 07/26/24 13:50 07/26/24 13:50 Pulse Rate 134 H Respiratory Rate 20 Blood Pressure 98/53 L 126/88 Pulse Oximetry 95 Oxygen Delivery Method 07/26/24 13:55 07/26/24 14:00 07/26/24 14:00 Pulse Rate 145 H 145 H Respiratory Rate 23 Blood Pressure 126/88 138/71 Pulse Oximetry 97 Oxygen Delivery Method 07/26/24 14:10 07/26/24 14:10 07/26/24 14:10 Pulse Rate 145 H 134 H Respiratory Rate 22 Blood Pressure 126/88 140/92 H Pulse Oximetry 100 Oxygen Delivery Method 07/26/24 14:20 07/26/24 14:20 07/26/24 14:30 Pulse Rate 146 H 144 H Respiratory Rate 17 18 Blood Pressure 138/98 H Pulse Oximetry 99 100 Oxygen Delivery Method 07/26/24 14:30 07/26/24 14:40 07/26/24 14:40 Pulse Rate 147 H Respiratory Rate 19 Blood Pressure 106/65 105/62 Pulse Oximetry 100 Oxygen Delivery Method 07/26/24 14:51 07/26/24 14:51 07/26/24 15:00 Pulse Rate 144 H 148 H Respiratory Rate 19 18 Blood Pressure 117/102 H Pulse Oximetry 100 96 Oxygen Delivery Method 07/26/24 15:00 07/26/24 15:10 07/26/24 15:10 Pulse Rate 147 H Respiratory Rate 19 Blood Pressure 133/84 112/59 L Pulse Oximetry 99 Oxygen Delivery Method 07/26/24 15:20 07/26/24 15:20 07/26/24 15:30 Pulse Rate 148 H Respiratory Rate 18 Blood Pressure 101/73 125/57 L Pulse Oximetry 97 Oxygen Delivery Method 07/26/24 15:30 07/26/24 15:40 07/26/24 15:40 Pulse Rate 126 H 122 H Respiratory Rate 16 14 Blood Pressure 113/57 L Pulse Oximetry 99 99 Oxygen Delivery Method 07/26/24 15:50 07/26/24 15:50 07/26/24 15:59 Pulse Rate 130 H 142 H Respiratory Rate 13 17 Blood Pressure 117/56 L Pulse Oximetry 97 96 Oxygen Delivery Method 07/26/24 16:00 07/26/24 16:00 07/26/24 16:03 Pulse Rate 135 H 146 H Respiratory Rate 20 20 Blood Pressure 96/52 L 98/62 Pulse Oximetry 99 98 Oxygen Delivery Method 07/26/24 16:03 07/26/24 16:03 07/26/24 16:10 Pulse Rate 143 H 115 H Respiratory Rate 16 19 Blood Pressure 98/62 112/72 Pulse Oximetry 98 97 Oxygen Delivery Method 07/26/24 16:20 07/26/24 16:30 Pulse Rate 95 H 89 Respiratory Rate 18 14 Blood Pressure 121/56 L 111/55 L Pulse Oximetry 98 99 Oxygen Delivery Method Room Air Oxygen Delivery Method Room Air Narrative Exam Narrative: GENERAL: This is a well-nourished, well-developed patient, in no apparent distress. HEAD: Atraumatic. Normocephalic. No temporal or scalp tenderness. EYES: Pupils equal round and reactive. Extraocular motions intact. No scleral icterus. No injection or drainage. ENT: Mucous membranes pink and moist. NECK: Trachea midline. No JVD, bruits or lymphadenopathy. Supple, nontender, no meningeal signs. CARDIOVASCULAR: Irregularly irregular rhythm without murmurs, gallops, or rubs. RESPIRATORY: Clear to auscultation. GASTROINTESTINAL: Abdomen soft, non-tender, nondistended. EXTREMITIES: No clubbing, cyanosis, or edema. BACK: Nontender without deformity or crepitance. No flank tenderness. NEUROLOGIC: Alert, oriented, speech fluent, full upper and lower motor strength, no focal deficits evident. DERMATOLOGIC: No rashes or skin lesions. Objective ECG Impression: Atrial flutter at 72 beats per minute, delayed R-wave progression, T-wave inversions V4 through V6 with 0.[address]-depression laterally. Imaging Chest x-ray: Radiologist's impression: No acute cardiopulmonary abnormality is seen. Labs 07/26/24 12:09 07/26/24 14:10 Labs: Laboratory Results - last 24 hr 07/26/24 07/26/24 12:09 14:10 WBC 12.3 H RBC 4.47 Hgb 13.8 Hct 41.4 MCV 92.5 MCH 30.9 MCHC 33.4 RDW 13.8 Plt Count 266 Neut % (Auto) 73.7 Lymph % (Auto) 17.0 L [place] % (Auto) 8.3 Eos % (Auto) 0.3 L Baso % (Auto) 0.7 Neut # (Auto) 9100 H Lymph # (Auto) 2100 [place] # (Auto) 1000 H Eos # (Auto) 0 Baso # (Auto) 100 PT 12.0 INR 1.1 APTT 18 L Sodium 139 Potassium 4.0 Chloride 107 Carbon Dioxide 24 BUN 26 H Creatinine 0.77 Estimated GFR > 60 BUN/Creatinine Ratio 33.8 H Glucose 110 Calcium 9.5 Magnesium 2.0 Total Bilirubin 1.1 AST 36 ALT 25 Alkaline Phosphatase 67 Total Creatine Kinase 52 Troponin I 0.120 H Total Protein 6.5 Albumin 4.1 Globulin 2.4 Albumin/Globulin Ratio 1.7 Lipase 70 Assessment & Plan Assessment & Plan narrative: 1. Atrial flutter/fibrillation with rapid ventricular response. Admit to ICU, monitor on telemetry. Continue diltiazem infusion. Monitor serial cardiac enzymes, obtain echocardiogram, start apixaban 5 mg twice daily for stroke prophylaxis. 2. Elevated troponin. Rule out myocardial ischemia/infarction. Monitor serial cardiac enzymes and obtain echocardiogram. 3. History of paroxysmal atrial fibrillation. Appears longstanding and outpatient cardiology consultation is advised to consider catheter based ablation. 4. Hyperlipidemia. Continue routine statin. 5. Chronic back pain. Advised to take Tylenol as needed for pain and stop ibuprofen given initiation of DOAC therapy. 6. DVT prophylaxis. Addressed with apixaban. 7. Code status: Full code. The patient states that she would wish full resuscitation in the event of cardiopulmonary arrest. Plan: -admit to ICU -diltiazem IV infusion -diltiazem 60 mg by mouth every 6 hours -apixaban 5 mg twice daily -serial cardiac enzymes -echocardiography -Tylenol as needed for pain -continue routine statin The patient is admitted inpatient status as she will require at least 2 midnights of inpatient level care. Time-Based Coding :: [TOTAL MINUTES] spent with patient and on the chart (including review of chart, obtaining history, exam, reviewing outside data, placing orders, documenting exam and treatment plan, and counseling patient) on [DATE]. Quality MIPS - Admit I confirm the patient?s Advance Care Plan is present, Code status is documented, Surrogate decision maker is in patient?s record [If Yes, STOP here]: Yes [facility] - Meds 'Current medications' to include all prescriptions, [id number] products, herbals, cannabis/cannabidiol products, and vitamin/mineral/dietary (nutritional) supplements. I have utilized all available resources to obtain, update, or review the patient?s current medications. [If Yes, STOP here]: Yes [facility] Charge Codes Initial inpatient/observation care: 82691
--- NOTE | 2024-07-26 17:26 | DI.ECHO.S_ITS ---
[facility]+ [facility] : : [address] : : [place] : : [id number] : : Phone: [phone] Echocardiogram Report + + :Name: ROSINA MCPHERSON Study Date: 07/27/2024 Height: 66 in : :[facility] ReadingLocation: Weight: 140 lb : : Gender: Female BSA: 1.7 m2 : :: 1945 Age: 79 yrs BP: 108/52 mmHg: :Reason For Study: ATRIAL FIBRILLATION : :Ordering Physician: GLORIA, : :GERARDO Performed By: Obed Carroll : :Referring: GERARDO CASTRO : + + Interpretation Summary Normal left ventricle size with ejection fraction 55-60%. The left atrium is moderately dilated. The aortic valve is mildly calcified. Mild mitral annular calcification. Mild tricuspid regurgitation. Procedure: A two-dimensional transthoracic echocardiogram with color flow and Doppler was performed. A contrast injection of Definity was performed to improve assessment of LV function. The study quality was technically difficult. There is no prior echocardiogram noted for this patient. The patient was in atrial fibrillation with heart rates between 46-95 bpm during the exam. Left Ventricle: The left ventricle is normal in size. There is normal left ventricular wall thickness. There is no ventricular septal defect visualized. The ejection fraction is estimated to be 55-60%. There are no obvious focal wall motion abnormalities noted but poor endocardial definition reduces the sensitivity for the detection of such. Diastolic function could not be accurately assessed due to atrial fibrillation. Right Ventricle: The right ventricle is normal in size and function. Atria: The left atrium is moderately dilated. Right atrial size is normal. There is no Doppler evidence for an interatrial shunt. Mitral Valve: The mitral valve leaflets appear mildly thickened, but open well. There is mild mitral annular calcification. There is no mitral regurgitation noted. Aortic Valve: The aortic valve is not well visualized. The aortic valve is mildly calcified. No aortic regurgitation is present. Tricuspid Valve: The tricuspid valve is normal in structure and function. There is mild tricuspid regurgitation. The right ventricular systolic pressure is estimated to be at least 23 mmHg based on an estimated right atrial pressure of 3 mm Hg. Pulmonic Valve: The pulmonic valve is not well visualized. The pulmonic valve is not well seen, but is grossly normal. There is no pulmonic valvular regurgitation. Great Vessels: The aortic root is normal size. The ascending aorta could not be visualized. The pulmonary artery is not well visualized, but is probably normal size. The IVC is of normal diameter and collapses greater than 50% with a sniff. This suggests a low right atrial pressure of 3 mm Hg. Pericardium/ Pleura There is no pericardial effusion. There is no pleural effusion. MMode/2D Measurements & Calculations LVIDd: 5.0 cm LVOT diam: 1.9 cm LVIDs: 3.3 cm Ao root diam: 3.1 cm FS: 33.7 % EPSS: 0.78 cm IVSd: 1.0 cm LVPWd: 0.97 cm LV vinson. diameter/BSA (cm/m^2): 2.9 LV sys. diameter/BSA (cm/m^2): 1.9 LA A2 area: 19.1 cm2 RA long axis: 4.3 cm LA A4 area: 24.3 cm2 RA area: 14.1 cm2 LA length (vol): 6.0 cm RA vol: 39.8 ml LA vol: 65.4 ml RA : 23.1 ml/m2 LA vol index: 38.1 ml/m2 IVC diam: 2.0 cm RVD1 (basal): 2.9 cm RVD2 (mid): 2.4 cm TAPSE: 1.8 cm Doppler Measurements & Calculations Ao V2 max: 106.9 cm/sec LVOT Max Taran: 74.6 cm/sec Ao V2 mean: 83.5 cm/sec LV V1 max P.3 mmHg Ao max P.6 mmHg LV V1 VTI: 15.5 cm Ao mean P.0 mmHg PUMA(I,D): 2.0 cm2 Ao V2 VTI: 22.6 cm PUMA(V,D): 2.0 cm2 sev ratio: 0.69 PUMA indexed to BSA (cm^2/m^2): 1.1 MV E max taran: 76.7 cm/sec TR max taran: 224.5 cm/sec MV A max taran: 18.4 cm/sec TR max P.3 mmHg MV E/A: 4.2 PA V2 max: 54.4 cm/sec Med Peak E' Taran: 7.1 cm/sec PA V2 mean: 42.0 cm/sec E/E' med: 10.8 PA mean P.75 mmHg Lat Peak E' Taran: 9.1 cm/sec PA pr(Accel): 46.5 mmHg E/E' lat: 8.5 E/e' average: 9.7 MV dec time: 0.21 sec SV(LVOT): 44.0 ml Electronically signed by: Alvaro Whipple on Reading Physician:07/27/2024 11:48 AM
[2024-07-26] MEDS: INFLUENZA HD VACCINE 0.5 ML SYRINGE IM (18:04)
[2024-07-26] MEDS: APIXABAN 5 MG TABLET PO (18:17)
[2024-07-26 18:18] LABS: Troponin I 0.133 ng/mL (0.01-0.034)
[2024-07-26] MEDS: dilTIAZem 30 MG TABLET 60 MG PO (18:18)
[2024-07-26 19:12] LABS: MRSA (Nasal) PCR NOT DETECTED (Not Detect)
[2024-07-26] MEDS: ATORVASTATIN 20 MG TABLET PO (20:43)
[2024-07-26] MEDS: dilTIAZem 125 MG in SODIUM CHLORIDE 0.9% 100 ML 15 MG IV (21:41)
[2024-07-27] VITALS (87 sets, daily range): BP systolic 84–131; BP diastolic 50–89; PULSE 59–154; RESP 9–39; TEMP 36.4–36.6; O2SAT 94–99
[2024-07-27] MEDS: dilTIAZem 30 MG TABLET 60 MG PO ×2 (00:13→06:06)
[2024-07-27 02:05] LABS: Troponin I 0.145 ng/mL (0.01-0.034)
[2024-07-27 04:26] LABS: Add Manual Diff / Slide Review NO; Basophils Absolute Auto 100 /uL (0-100); Basophils Percent Auto 0.9 % (0-2); Eosinophils Absolute Auto 100 /uL (0-450); Eosinophils Percent Auto 1.1 % (2-4); Hematocrit 39.7 % (36-46); Hemoglobin 13.2 g/dL (12.0-16.0); Lymphocytes Absolute Auto 2700 /uL (1100-4500); Lymphocytes Percent Auto 21.2 % (25-40); Mean Corpuscular HGB Conc 33.1 % (30-36); Mean Corpuscular Hemoglobin 30.7 PG (26-34); Mean Corpuscular Volume 92.7 fL (80-100); Monocytes Absolute Auto 1400 /uL (0-900); Monocytes Percent Auto 10.9 % (3-14); Neutrophils Absolute Auto 8500 /uL (1500-7000); Neutrophils Percent Auto 65.9 % (50-75); Platelet Count 268 X10^3/uL (150-400); Red Blood Cell Count 4.28 X10^6/uL (4.0-5.2); Red Cell Distribution Width 13.7 % (11.6-14.8); White Blood Cell Count 12.9 X10^3/uL (4.5-11.0)
[2024-07-27 04:40] LABS: BUN Creatinine Ratio 29.5 (6-22); Blood Urea Nitrogen 18 mg/dL (7-17); Calcium 8.7 mg/dL (8.4-10.2); Carbon Dioxide 23 mmol/L (22-32); Chloride 109 mmol/L (98-107); Estimated Glomerular Filt Rate > 60 mL/min (>60); Glucose 105 mg/dL (80-110); HEMOLYSIS < 15 (0-50); Potassium 3.7 mmol/L (3.4-5.1); Sodium 138 mmol/L (137-145)
[2024-07-27 05:42] LABS: Thyroid Stimulating Hormone 1.64 uIU/mL (0.47-4.68)
[2024-07-27 06:49] LABS: Troponin I 0.132 ng/mL (0.01-0.034)
--- NOTE | 2024-07-27 06:52 | PC.NURSE ---
pt remains in a-fib but her HR is mostly less than 100bpm; her diltiazem drip has been decreased to 5mg/hr and she is getting po cardizem q6h; she is experiencing vertigo, which she has had previous episodes, and this episode started approx 3 days prior to the onset of the atrial fibrillation; she has been instructed to call for assistance and she has been compliant
[2024-07-27] MEDS: APIXABAN 5 MG TABLET PO ×2 (08:39→20:29)
[2024-07-27] MEDS: dilTIAZem 125 MG in SODIUM CHLORIDE 0.9% 100 ML 10 MG IV (08:42)
[2024-07-27] MEDS: MECLIZINE HCL 12.5 MG TABLET 25 MG PO ×3 (11:34→23:43)
[2024-07-27] MEDS: dilTIAZem CD 180 MG CAP PO (11:34)
--- NOTE | 2024-07-27 13:58 | CM.DANOTE ---
Initial DCP Assessment Note Pt is a 79 yo female, lives independently on [facility] with spouse, son and DIL , presents with dizziness, admitted for management of AFib w/RVR. Patient discussed in multidisciplinary rounds this morning, echo pending this morning. YU depends on correction of heart rate. PCP: Fern Mayes Payer: [employer]/ [employer] [place] Reviewed chart, met w/patient and sp at bedside. Patient/sp deny needs from this CM team currently, report they have assist from the family members they live with if any needs arise. No barriers identified at this time to patient's safe discharge home w/family to assist; close outpatient f/u recommended. CM team will plan to follow clinical course closely in case any DC needs or concerns arise. RUFINA Dumont Discharge Planning/Care Management CM Discharge Assessment Start: 07/27/24 13:54 Freq: Status: Active Protocol: Document 07/27/24 13:55 CARMENZA (Rec: 07/27/24 13:58 CARMENZA [id number]) Discharge Planning Assessment Assigned R&D Lab Technician RUFINA Montejo DPOA/Assigned Designee Name Cristino Martinez, spouse Contact Information [phone] Advance Directives? No History Provided By Patient,Significant Other, Medical Record Prior Living Arrangements House Household Members spouse,family Type of transporation used prior to Drives own vehicle admit Independent with ADL's Yes Is patient alert and oriented? Yes Barriers to Discharge No Discharge Plan Home Transportation Arrangement Family Referrals Initiated None needed
[2024-07-27] MEDS: dilTIAZem 30 MG TABLET PO (16:21)
--- NOTE | 2024-07-27 16:37 | PC.NURSE ---
Addendum entered by Poornima Springer R.N. 07/27/24 17:08: 1705 HR remains elevated with episodes into the 150's and 160's after new provider orders. Provider contacted and new orders received. Original Note: Pt weaned off diltiazem infusion in the AM, parviz cancelled infusion order. During afternoon HR started increasing with averages 110-120's with increases to 160. Provider notified, see new orders. Pt denies shortness of breath or chest pain.
[2024-07-27] MEDS: METOPROLOL IR 25 MG TABLET PO ×2 (17:20→23:43)
[2024-07-27] MEDS: dilTIAZem 125 MG in SODIUM CHLORIDE 0.9% 100 ML IV (17:21)
--- NOTE | 2024-07-27 18:23 | P.PN_ITS ---
Subjective Subjective Interval history: 79 F admitted with Afib with RVR. HR was controlled to intermittently bradycardic this morning on diltiazem infusion with 60 mg Q6 of PO diltiazem. Attempted to decrease to 180 mg daily dose this afternoon but rates jumped again. Not improved with additional 60 mg dose. Ordered for diltiazem infusion again tonight with addition of beta elma as well. EF is normal on echo today. Exam Vital Signs (past 8 hours): - 07/27/24 10:25 07/27/24 10:30 07/27/24 10:35 Pulse Rate 71 62 71 Respiratory Rate 20 16 15 Blood Pressure Pulse Oximetry 97 95 97 07/27/24 10:40 07/27/24 10:45 07/27/24 10:50 Pulse Rate 77 72 73 Respiratory Rate 20 30 H 27 H Blood Pressure Pulse Oximetry 97 95 98 07/27/24 10:55 07/27/24 11:00 07/27/24 11:00 Pulse Rate 66 70 Respiratory Rate 18 16 Blood Pressure 89/50 L Pulse Oximetry 99 98 07/27/24 11:04 07/27/24 11:04 07/27/24 11:05 Pulse Rate 76 70 Respiratory Rate 25 H 25 H Blood Pressure 98/55 L Pulse Oximetry 99 99 07/27/24 11:10 07/27/24 12:00 07/27/24 12:00 Pulse Rate 75 96 H 61 Respiratory Rate 23 20 Blood Pressure 90/61 Pulse Oximetry 99 99 98 07/27/24 12:18 07/27/24 12:18 07/27/24 13:00 Pulse Rate 66 72 Respiratory Rate Blood Pressure 90/61 Pulse Oximetry 99 99 07/27/24 14:00 07/27/24 14:08 07/27/24 14:08 Pulse Rate 80 75 Respiratory Rate Blood Pressure 108/66 Pulse Oximetry 97 97 07/27/24 15:02 07/27/24 15:04 07/27/24 15:04 Pulse Rate 67 131 H Respiratory Rate Blood Pressure 115/75 Pulse Oximetry 95 97 07/27/24 16:00 07/27/24 17:00 07/27/24 17:16 Pulse Rate 133 H 90 134 H Respiratory Rate Blood Pressure Pulse Oximetry 97 99 97 07/27/24 17:16 07/27/24 17:23 07/27/24 17:30 Pulse Rate 149 H 87 Respiratory Rate Blood Pressure 122/78 Pulse Oximetry 97 07/27/24 17:30 07/27/24 17:39 07/27/24 17:39 Pulse Rate 154 H 104 H Respiratory Rate Blood Pressure 117/71 120/80 Pulse Oximetry 97 07/27/24 17:39 07/27/24 18:00 07/27/24 18:00 Pulse Rate 89 76 Respiratory Rate Blood Pressure 120/80 92/51 L Pulse Oximetry 98 07/27/24 18:01 07/27/24 18:01 07/27/24 18:21 Pulse Rate 76 60 Respiratory Rate Blood Pressure 92/51 L Pulse Oximetry 97 99 07/27/24 18:21 Pulse Rate Respiratory Rate Blood Pressure 119/82 Pulse Oximetry Oxygen Delivery Method Room Air Oxygen Flow Rate 0 Narrative Exam Narrative: Gen: No acute distress CV: regular rate, irregularly irregular rhythm Pulm: No distress ABD: S ND Ext: no edema Objective Labs 07/27/24 04:02 07/27/24 04:02 Labs: Laboratory Results - last 24 hr 07/26/24 07/27/24 07/27/24 16:45 01:25 04:02 WBC 12.9 H RBC 4.28 Hgb 13.2 Hct 39.7 MCV 92.7 MCH 30.7 MCHC 33.1 RDW 13.7 Plt Count 268 Neut % (Auto) 65.9 Lymph % (Auto) 21.2 L [place] % (Auto) 10.9 Eos % (Auto) 1.1 L Baso % (Auto) 0.9 Neut # (Auto) 8500 H Lymph # (Auto) 2700 [place] # (Auto) 1400 H Eos # (Auto) 100 Baso # (Auto) 100 Sodium 138 Potassium 3.7 Chloride 109 H Carbon Dioxide 23 BUN 18 H Creatinine 0.61 Estimated GFR > 60 BUN/Creatinine Ratio 29.5 H Glucose 105 Calcium 8.7 Troponin I 0.145 H* 0.132 H* TSH 1.64 Nasal Screen MRSA (PCR) Not detected PFSH Medical History Hyperlipemia Paroxysmal atrial fibrillation History of melanoma Surgical History H/O: hysterectomy Social History marital status: details: ALSO, LIVES WITH ADULT SON AND HIS . household members: spouse and family lives independently: Yes occupational status: previously employed Smoking Status: Former smoker alcohol intake: current substance use type: does not use Assessment & Plan Assessment & Plan narrative: 1. Atrial flutter/fibrillation with rapid ventricular response. Admit to ICU, monitor on telemetry. Continue diltiazem infusion. Monitor serial cardiac enzymes, obtain echocardiogram, start apixaban 5 mg twice daily for stroke prophylaxis. 2. Myocardial injury. TTE unremarkable with declining troponins today. 3. History of paroxysmal atrial fibrillation. Appears longstanding and outpatient cardiology consultation is advised to consider catheter based ablation. 4. Hyperlipidemia. Continue routine statin. 5. Chronic back pain. Advised to take Tylenol as needed for pain and stop ibuprofen given initiation of DOAC therapy. 6. DVT prophylaxis. Addressed with apixaban. 7. Code status: Full code. The patient states that she would wish full resuscitation in the event of cardiopulmonary arrest. Plan: -diltiazem IV infusion to resume tonight after stopping today given recurrence of RVR today. -continue dilt 180 mg daily, add metoprolol 25 q6 scheduled to see about rate control. -apixaban 5 mg twice daily -no further troponins needed, downtrending. -echocardiography with normal EF and no WMA. -Tylenol as needed for pain -continue routine statin The patient is admitted inpatient status as she will require at least 2 midnights of inpatient level care. Code: Full DVT: on apixaban. Time-Based Coding :: [TOTAL MINUTES] spent with patient and on the chart (including review of chart, obtaining history, exam, reviewing outside data, placing orders, documenting exam and treatment plan, and counseling patient) on [DATE]. Quality VTE Deep Vein Thrombosis/Pulmonary Embolism Present on Admission: No
[2024-07-27] MEDS: POTASSIUM CHLORIDE 20 MEQ TAB 40 MEQ PO (18:37)
[2024-07-27] MEDS: ATORVASTATIN 20 MG TABLET PO (20:29)
[2024-07-28] VITALS (31 sets, daily range): BP systolic 91–121; BP diastolic 50–78; PULSE 38–143; RESP 13–36; TEMP 36.3–37.2; O2SAT 94–99
[2024-07-28 04:34] LABS: Add Manual Diff / Slide Review NO; Basophils Absolute Auto 100 /uL (0-100); Basophils Percent Auto 0.5 % (0-2); Eosinophils Absolute Auto 200 /uL (0-450); Eosinophils Percent Auto 1.4 % (2-4); Hematocrit 38.1 % (36-46); Hemoglobin 12.5 g/dL (12.0-16.0); Lymphocytes Absolute Auto 3000 /uL (1100-4500); Lymphocytes Percent Auto 26.5 % (25-40); Mean Corpuscular HGB Conc 32.9 % (30-36); Mean Corpuscular Hemoglobin 30.5 PG (26-34); Mean Corpuscular Volume 92.8 fL (80-100); Monocytes Absolute Auto 1600 /uL (0-900); Monocytes Percent Auto 14.6 % (3-14); Neutrophils Absolute Auto 6300 /uL (1500-7000); Platelet Count 247 X10^3/uL (150-400); Red Blood Cell Count 4.11 X10^6/uL (4.0-5.2); Red Cell Distribution Width 13.8 % (11.6-14.8); White Blood Cell Count 11.1 X10^3/uL (4.5-11.0)
[2024-07-28 04:52] LABS: BUN Creatinine Ratio 29.2 (6-22); Blood Urea Nitrogen 21 mg/dL (7-17); Calcium 8.8 mg/dL (8.4-10.2); Carbon Dioxide 24 mmol/L (22-32); Chloride 111 mmol/L (98-107); Estimated Glomerular Filt Rate > 60 mL/min (>60); Glucose 101 mg/dL (80-110); HEMOLYSIS < 15 (0-50); Magnesium 1.7 mg/dL (1.6-2.3); Potassium 4.1 mmol/L (3.4-5.1); Sodium 139 mmol/L (137-145)
[2024-07-28] MEDS: METOPROLOL IR 25 MG TABLET PO ×2 (06:02→09:00)
[2024-07-28] MEDS: APIXABAN 5 MG TABLET PO ×2 (08:55→20:09)
[2024-07-28] MEDS: ACETAMINOPHEN 325 MG TABLET 650 MG PO ×2 (08:56→20:09)
[2024-07-28] MEDS: MAGNESIUM SULFATE 2 GM/50 ML PIGGYBACK IV (09:00)
--- NOTE | 2024-07-28 11:18 | CM.DPNOTE ---
DCP note [employer] reviewed EMR. Per RN report, pt remains on drip, plan is to increase PO meds to see if that helps regulate HR better. PT now pending. Per chart review, echo normal. Plan: YU unknown, likely another day or so. No barriers identified at this time to patient's safe discharge home w/family to assist; close outpatient f/u recommended. CM team will plan to follow clinical course closely in case any DC needs or concerns arise. RUFINA Dubois
[2024-07-28] MEDS: dilTIAZem CD 180 MG CAP PO (12:31)
[2024-07-28] MEDS: METOPROLOL IR 25 MG TABLET 50 MG PO (12:32)
[2024-07-28] MEDS: AMIODARONE 150 MG/100 ML PIGGYBACK 600 MG IV (12:32)
[2024-07-28] MEDS: AMIODARONE 360 MG/200 ML PIGGYBACK 33.333 MG IV (12:48)
--- NOTE | 2024-07-28 12:58 | PT-IP ANOTE ---
PT eval received and EMR reviewed. checked with nurse and stated that pt's HR is still high: 130-140s at rest and currently still on diltiazem drip. PT eval hold for this morning. will f/u.
--- NOTE | 2024-07-28 13:44 | P.PN_ITS ---
Subjective Subjective Interval history: 79 F admitted with Afib with RVR. Still tachycardic today, have increased to 200 mg of PO metoprolol, 180 mg of diltiazem and remains tachycardic. Discussed with cardiology, recommended amiodarone. Starting amiodarone infusion now. Patient is without complaints today, feels a bit tired but other pepper fine. Exam Vital Signs (past 8 hours): - 07/28/24 06:00 07/28/24 06:00 07/28/24 07:00 Pulse Rate 122 H Respiratory Rate 14 Blood Pressure 106/78 112/63 Pulse Oximetry 96 Oxygen Delivery Method Oxygen Flow Rate 0 07/28/24 07:00 07/28/24 08:00 07/28/24 08:00 Pulse Rate 132 H Respiratory Rate 22 Blood Pressure 104/69 Pulse Oximetry 96 Oxygen Delivery Method Room Air Oxygen Flow Rate 07/28/24 08:00 07/28/24 09:00 07/28/24 09:00 Pulse Rate 99 H 132 H Respiratory Rate 20 22 Blood Pressure 102/73 Pulse Oximetry 96 Oxygen Delivery Method Oxygen Flow Rate 07/28/24 10:00 07/28/24 10:01 07/28/24 10:03 Pulse Rate 118 H 112 H 114 H Respiratory Rate 24 29 H 28 H Blood Pressure Pulse Oximetry Oxygen Delivery Method Oxygen Flow Rate 07/28/24 10:03 07/28/24 11:00 Pulse Rate 92 H Respiratory Rate 22 Blood Pressure 94/50 L Pulse Oximetry Oxygen Delivery Method Oxygen Flow Rate Oxygen Delivery Method Room Air Oxygen Flow Rate 0 Narrative Exam Narrative: Gen: No acute distress CV: tachycardic, irregularly irregular rhythm Pulm: No distress ABD: S ND Ext: no edema Objective Labs 07/28/24 04:07 07/28/24 04:07 Labs: Laboratory Results - last 24 hr 07/28/24 04:07 WBC 11.1 H RBC 4.11 Hgb 12.5 Hct 38.1 MCV 92.8 MCH 30.5 MCHC 32.9 RDW 13.8 Plt Count 247 Neut % (Auto) 57.0 Lymph % (Auto) 26.5 [place] % (Auto) 14.6 H Eos % (Auto) 1.4 L Baso % (Auto) 0.5 Neut # (Auto) 6300 Lymph # (Auto) 3000 [place] # (Auto) 1600 H Eos # (Auto) 200 Baso # (Auto) 100 Sodium 139 Potassium 4.1 Chloride 111 H Carbon Dioxide 24 BUN 21 H Creatinine 0.72 Estimated GFR > 60 BUN/Creatinine Ratio 29.2 H Glucose 101 Calcium 8.8 Magnesium 1.7 PFSH Medical History Hyperlipemia Paroxysmal atrial fibrillation History of melanoma Surgical History H/O: hysterectomy Social History marital status: details: ALSO, LIVES WITH ADULT SON AND HIS . household members: spouse and family lives independently: Yes occupational status: previously employed Smoking Status: Former smoker alcohol intake: current substance use type: does not use Assessment & Plan Assessment & Plan narrative: 1. Paroxysmal Atrial flutter/fibrillation with rapid ventricular response. 2. Myocardial injury. TTE unremarkable with declining troponins. 4. Hyperlipidemia. Continue routine statin. 5. Chronic back pain. Advised to take Tylenol as needed for pain and stop ibuprofen given initiation of DOAC therapy. 6. DVT prophylaxis. Addressed with apixaban. 7. Code status: Full code. The patient states that she would wish full resuscitation in the event of cardiopulmonary arrest. Plan: -continue PO dilt and metoprolol, currently at 180 mg daily and 50 mg q6 hr respectively. -discussed with banquet line cook occupational health specialist, recommended amiodarone infusion for rate control. -apixaban 5 mg twice daily -no further troponins needed, downtrending. -echocardiography with normal EF and no WMA. -Tylenol as needed for pain -continue routine statin The patient is admitted inpatient status as she will require at least 2 midnights of inpatient level care. Code: Full DVT: on apixaban. Time-Based Coding :: [TOTAL MINUTES] spent with patient and on the chart (including review of chart, obtaining history, exam, reviewing outside data, placing orders, documenting exam and treatment plan, and counseling patient) on [DATE]. Quality VTE Deep Vein Thrombosis/Pulmonary Embolism Present on Admission: No
--- NOTE | 2024-07-28 14:29 | EKG_ITS ---
[facility] [address] [place] [address] Test Date: 2024-07-28 Pat Name: Virgen Martinez Department: [facility] Room: 226 Gender: Female Avionics Systems Repairer: KATHRYN : 1945 Requested By: Order Number: [id number] Reading MD: Oneal De La Rosa Measurements Intervals [place] Rate: 39 P: 46 [place]: QRS: 6 QRSD: 80 T: -21 QT: 482 QTc: 388 Interpretive Statements Critical Test Result: Low HR Undetermined rhythm Nonspecific ST abnormality Electronically Signed On 07-29-2024 19:03:40 PST by nOeal De La Rosa
--- NOTE | 2024-07-28 15:01 | PC.NURSE ---
Day Shift Note Patient with persistent afib RVR in the 110-130s, up to 140s with activity. On dilt gtt at start of shift, PO metoprolol and PO diltiazem given per emar. Pt denies SOB or pain, still reports dizziness when changing positions and is mildly unsteady on feet, requiring FWW and cues to slow down. Amiodarone gtt started at 1230 per MD order. At approx 1419 pt converted to SB/intermittent afib SVR in the 30s initially, now in the 40s with mostly sinus beats, EKG done, Dr De La Rosa aware and at bedside. Amiodarone gtt continues. BP in the 90s/60s. SpO2 100% RA. Call light within reach, using appropriately to make needs known.
--- NOTE | 2024-07-28 15:58 | PT-IP ANOTE ---
checked with nurse and pt continues to have high IL and now on amiodarone drip. will hold PT eval today and will f/u tomorrow.
[2024-07-28] MEDS: AMIODARONE 360 MG/200 ML PIGGYBACK 16.667 MG IV (18:15)
[2024-07-28] MEDS: ATORVASTATIN 20 MG TABLET PO (20:09)
[2024-07-28] MEDS: MECLIZINE HCL 12.5 MG TABLET 25 MG PO (20:09)
[2024-07-29] VITALS (15 sets, daily range): BP systolic 87–131; BP diastolic 51–68; PULSE 59–81; RESP 15–24; TEMP 36.6–37.1; O2SAT 95–99
[2024-07-29 04:42] LABS: Add Manual Diff / Slide Review NO; Basophils Absolute Auto 0 /uL (0-100); Basophils Percent Auto 0.5 % (0-2); Eosinophils Absolute Auto 200 /uL (0-450); Eosinophils Percent Auto 1.8 % (2-4); Hematocrit 37.7 % (36-46); Hemoglobin 12.6 g/dL (12.0-16.0); Lymphocytes Absolute Auto 2300 /uL (1100-4500); Lymphocytes Percent Auto 22.9 % (25-40); Mean Corpuscular HGB Conc 33.4 % (30-36); Mean Corpuscular Hemoglobin 30.9 PG (26-34); Mean Corpuscular Volume 92.7 fL (80-100); Monocytes Absolute Auto 1700 /uL (0-900); Monocytes Percent Auto 16.6 % (3-14); Neutrophils Absolute Auto 5900 /uL (1500-7000); Neutrophils Percent Auto 58.2 % (50-75); Platelet Count 217 X10^3/uL (150-400); Red Blood Cell Count 4.07 X10^6/uL (4.0-5.2); Red Cell Distribution Width 13.9 % (11.6-14.8); White Blood Cell Count 10.1 X10^3/uL (4.5-11.0)
[2024-07-29 04:54] LABS: BUN Creatinine Ratio 31.9 (6-22); Blood Urea Nitrogen 23 mg/dL (7-17); Calcium 8.7 mg/dL (8.4-10.2); Carbon Dioxide 25 mmol/L (22-32); Chloride 108 mmol/L (98-107); Estimated Glomerular Filt Rate > 60 mL/min (>60); Glucose 98 mg/dL (80-110); HEMOLYSIS < 15 (0-50); Magnesium 1.9 mg/dL (1.6-2.3); Sodium 139 mmol/L (137-145)
[2024-07-29] MEDS: AMIODARONE 360 MG/200 ML PIGGYBACK 16.667 MG IV (05:57)
[2024-07-29] MEDS: ACETAMINOPHEN 325 MG TABLET 650 MG PO (08:20)
[2024-07-29] MEDS: MECLIZINE HCL 12.5 MG TABLET 25 MG PO (08:20)
[2024-07-29] MEDS: APIXABAN 5 MG TABLET PO (08:21)
--- NOTE | 2024-07-29 08:40 | P.DS_ITS ---
History of Present Illness History of Present Illness Date Patient Seen: 07/29/24 Time Patient Seen: 08:40 Chief complaint: N/V Narrative: Per admitting provider, 79-year-old woman under the primary care of Fern Mayes PA-C reports 3-4 days of dizziness, nausea and vomiting. She notes a history of intermittent atrial fibrillation going back 20 years, with the impression that she gets an episode every few weeks, or sometimes even a few times a week with a sense of palpitations. She also has episodic vertigo episodes and states that this started out like one of her vertigo episodes. Symptoms worsened today and she felt lightheaded and dizzy and passed out briefly. Paramedics called and found her heart rate to be irregular in the 110-140 range. She was given IV diltiazem and upon arrival on monitored she was in atrial fibrillation with heart rate in the 80s. She continued to report dizziness. Heart rate increased and she was given IV metoprolol which failed to improve heart rate, and was started on IV diltiazem infusion and admitted for further management and evaluation. She denies chest pain, shortness for breath, abdominal pain, hematemesis, melena, hematochezia or history of bleeding problems. She takes ibuprofen 200 mg 3 times daily for chronic back pain and arthritis. Discharge Providers Provider Date of admission: 07/26/24 15:28 Discharge Date: 07/29/24 Primary care physician: Fern Mayes PA-C Consults: 07/27/24 14:15 Consult to Physical Therapy Evaluate & Treat Comment: BPPV Physician Instructions: Evaluate and Treat Discharge provider: Oneal De La Rosa DO Summary Hospital Course Discharge Diagnosis: 1. Paroxysmal Atrial flutter/fibrillation with rapid ventricular response. 2. Myocardial injury. 3. Hyperlipidemia. 4. Chronic back pain. Hospital Course: This is a 79 year old female with a PMH of paroxysmal atrial fibrillation, and HLD who was admitted with afib with RVR. She was not previously on any anticoagulation, but given elevated CHADS2-VASC score this was initiated on admission. Initial troponins were elevated but quickly downtrended and were likely elevated in the setting of her RVR / demand. She was initially on a diltiazem infusion for rate control. She was started initially on oral diltiazem, but could not get off of her diltiazem infusion. Metoprolol was attempted as well with minimal success. Discussed with cardiology as her TTE showed normal EF and no significant valvular abnormalities and recommendation was for amiodarone. With amiodarone, metoprolol and diltiazem she was bradycardic to the upper 30s (she was asymptomatic during this time). Metoprolol was stopped with subsequent improvement / resolution of her bradycardia. HR was in the 60s with amiodarone and diltiazem. At discharge, she was sent on 200 mg BID of amiodarone for 3 weeks, to be followed by 100 mg daily after to complete a loading dose. She will also continue on diltiazem 180 mg daily. Apixban 5 mg BID was also prescribed for stroke prevention. Recommend prompt PCP follow up for referral to cardiology for further management of her atrial fibrillation. Time Spent with Patient Time spent: Greater than 30 minutes Exam Vital Signs (past 8 hours): - 07/29/24 01:00 07/29/24 02:00 07/29/24 02:00 Temperature Pulse Rate 62 61 Respiratory Rate 18 16 Blood Pressure 87/51 L 131/60 Pulse Oximetry 96 97 Oxygen Flow Rate 0 0 07/29/24 03:00 07/29/24 03:00 07/29/24 04:00 Temperature 98.7 F Pulse Rate 59 L 69 Respiratory Rate 15 22 Blood Pressure 113/56 L Pulse Oximetry 95 98 Oxygen Flow Rate 0 0 07/29/24 04:00 07/29/24 05:00 07/29/24 05:00 Temperature Pulse Rate 60 Respiratory Rate 16 Blood Pressure 123/60 116/56 L Pulse Oximetry 95 Oxygen Flow Rate 07/29/24 06:00 07/29/24 06:00 07/29/24 07:00 Temperature Pulse Rate 67 64 Respiratory Rate 16 16 Blood Pressure 104/51 L Pulse Oximetry 97 95 Oxygen Flow Rate 0 07/29/24 07:01 07/29/24 07:01 Temperature 97.8 F Pulse Rate 64 Respiratory Rate 17 Blood Pressure 125/55 L Pulse Oximetry 97 Oxygen Flow Rate Oxygen Delivery Method Room Air Oxygen Flow Rate 0 Narrative Exam Narrative: Gen: No acute distress CV: regular rate, irregularly irregular rhythm Pulm: No distress ABD: S ND Ext: no edema Objective Labs 07/29/24 04:03 07/29/24 04:03 Labs: Laboratory Results - last 24 hr 07/29/24 04:03 WBC 10.1 RBC 4.07 Hgb 12.6 Hct 37.7 MCV 92.7 MCH 30.9 MCHC 33.4 RDW 13.9 Plt Count 217 Neut % (Auto) 58.2 Lymph % (Auto) 22.9 L [place] % (Auto) 16.6 H Eos % (Auto) 1.8 L Baso % (Auto) 0.5 Neut # (Auto) 5900 Lymph # (Auto) 2300 [place] # (Auto) 1700 H Eos # (Auto) 200 Baso # (Auto) 0 Sodium 139 Potassium 4.0 Chloride 108 H Carbon Dioxide 25 BUN 23 H Creatinine 0.72 Estimated GFR > 60 BUN/Creatinine Ratio 31.9 H Glucose 98 Calcium 8.7 Magnesium 1.9 PFSH Medical History Hyperlipemia Paroxysmal atrial fibrillation History of melanoma Surgical History H/O: hysterectomy Social History marital status: details: ALSO, LIVES WITH ADULT SON AND HIS . household members: spouse and family lives independently: Yes occupational status: previously employed Smoking Status: Former smoker alcohol intake: current substance use type: does not use Discharge Plan Discharge Plan Patient Disposition: Home Provider Discharge Comment: You were admitted to the hospital with fast atrial fibrillation. Your HR improved with amiodarone and diltiazem. You will need to take the amiodarone twice a day for 3 weeks to have it build up in your system, then you reduce the dosing to once daily. Continue eliquis for stroke prevention. Please follow up with your primary care provider as soon as possible after discharge, you should be referred to see a earring maker to discuss continued management options for your afib. Discharge orders & Medications Prescriptions: New Eliquis 5 mg Tablet 5 mg PO BID 90 Days Qty: 180 0RF diltiazem HCl [Cardizem CD] 180 mg Capsule,Extended Release 24hr 180 mg PO DAILY 90 Days Qty: 90 0RF amiodarone 200 mg tablet 200 mg PO BID 21 Days Qty: 42 0RF amiodarone 100 mg tablet 100 mg PO DAILY 90 Days Qty: 90 0RF Rx Instructions: Take one tab daily after completion of 3 week loading dose sent separately Continued atorvastatin 20 mg tablet 20 mg PO BEDTIME timolol 0.5 % drops 1 drp EYE-BOTH BID Discontinued ibuprofen 200 mg tablet 600 mg PO DAILY Rx Instructions: takes around 1100 Follow up/Referrals: Fern Mayes PA-C [Primary Care Provider] - Diet/Activity/Treatments Diet: Diet as Tolerated and Regular Activity: As tolerated, no restrictions. Visit Report/Discharge Packet Instructions: DI for Atrial Fibrillation, Diltiazem, Amiodarone, Apixaban Stand Alone Forms: Patient Portal/API, Stroke Signs & Symptoms Discharge Data Primary Care Provider: Fern Mayes Quality VTE Deep Vein Thrombosis/Pulmonary Embolism Present on Admission: No
[2024-07-29] MEDS: dilTIAZem CD 180 MG CAP PO (08:46)
--- NOTE | 2024-07-29 09:25 | CM.DPNOTE ---
DCP Note QUALITY CONTROL TECH reviewed EMR. DC orders placed. Per RN, drip will be stopped at 12:30, switched to PO. Spouse on way from [facility] [place]. no obvious CM needs. QUALITY CONTROL TECH briefly checked in with pt in room. Pt denies any CM needs at this time. P: home with spouse support and OP f/u recommended. no barriers to safe dc home identified at this time. CM team will continue to follow as needed RUFINA Dubois
--- NOTE | 2024-07-29 11:25 | PT.IIE ---
Current Diagnoses Unspecified atrial fibrillation (07/26/24) Surgical History (Last Reviewed 07/26/24 @ 17:58 by Lauri Paredes MD) H/O: hysterectomy Medical History (Last Reviewed 07/26/24 @ 17:58 by Lauri Paredes MD) History of melanoma Hyperlipemia Paroxysmal atrial fibrillation Physical Therapy Inpatient Evaluation/Re-Eval M1 PT/OT-IP Prior Functional Status Start: 07/27/24 15:50 Freq: NEEDED Status: Active Protocol: Document 07/29/24 11:25 AB (Rec: 07/29/24 12:40 AB [id number]) Medical Review Prior Functional Status Medical History Reviewed Yes Communication able to make needs known Mobility and Gait pt stated that she was independent with all mobilities and ambulation without AD Social History Household Members spouse,family Living Arrangements House Number of Floors (Floors) Two Floors Number of Stairs To Enter/Railing? pt stays on main level of the house 3 steps without rails to enter the house Home Environment Standard Height Toilet,Tub/ Shower Additional Social History Comment pt has her spouse, son and DIL at home to assist her M2 PT-IP Current Condition Start: 07/27/24 15:50 Freq: NEEDED Status: Active Protocol: Document 07/29/24 11:25 AB (Rec: 07/29/24 12:40 AB [id number]) Physical Therapy Current Condition Current Condition Evaluation Date 07/29/24 Treatment Diagnosis A-fib; difficulty in walking Onset Date 07/26/24 M3 PT-IP Subjective Start: 07/27/24 15:50 Freq: NEEDED Status: Active Protocol: Document 07/29/24 11:25 AB (Rec: 07/29/24 12:40 AB [id number]) Subjective Physical Therapy Visit Type Type Initial Evaluation Visit Start Time 11:25 Visit Stop Time 11:50 Notes pt with stable HR MI 62-66 and cleared to do PT today Number of HYDROGEN TREATER Visits 0 Physical Therapy Visit Comments Patient Comments informed pt regarding PT eval order. pt with h/o vertigo. per hospitalist's order:PT eval for BBPV. pt does not want to address vertigo at this time and stated that she wants to recover from the a- fib first and not do anything for the vertigo as this will make her more dizzy per pt. informed pt to see her vestibular therapist outpt when she feels she is ready and agreed. pt agreed to do PT in the hospital for mobility and safety assessment for safe d/c plan. Therapy Pain Assessment Pain Present Pain Present Denied Pain M4 PT-IP Mobility and Gait Start: 07/27/24 15:50 Freq: NEEDED Status: Active Protocol: Document 07/29/24 11:25 AB (Rec: 07/29/24 12:40 AB [id number]) PT-Bed Mobility Assessment Supine to Sit Supine to Sit Independent Sit to Supine Sit to Supine Independent PT-Transfer Assessment Sit to and From Stand Sit to and from Stand Independent,Use of Upper Extremities Equipment Transfer Assistive Device None,Gait Belt Orthotic/Prosthetic Devices or Brace: No Transfers Transfer Destination Bed,Chair Transfer Technique ambulated Transfer Ability Level of Assist Standby Assistance,1 Person Assistance,Use of Upper Extremities Comments Mobility Comments pt sitting on the chair and agreeable to do PT. pt with h /o vertigo. obtained PLOF and home set up. BP: 136/65 completed sit to stand SBA and ambulated to the EOB SBA. informed pt to avoid quick head turns and to focus vision on one spot to decrease increasing vertigo symptoms. pt understood. completed bed mobility sit<>supine independent. pt ambulated back to the chair SBA. agreed to do steps. positioned foot stool and pt completed up/down foot stool CGA. repeated x 2 sets. pt sat back on chair. call light within reach. pt without further concerns. Gait Assessment Gait Gait Assistance Required: Standby Assistance,1 Person Assist Distance (Feet) 20 Able to Maintain Weight Bearing Status Yes During Gait Assistive Devices Assistive Device None,Gait Belt Orthotic/Prosthetic Devices or Brace: No Factors Limiting Gait Function Factors Limiting Gait Function Decreased Activity Tolerance Stair Climbing Assessment Evaluation Level of Assist On Stairs Contact Guard Assistance Devices Stair Climbing Assistive Devices None Technique/Endurance Stair Climbing Direction Ascend and Descend Stair Climbing Technique Step to Step Number of Steps Climbed 1 Query Text: Stair Climbing Set # Repetitions (reps) 2 PT-Balance Assessment Sitting Balance and Reactions Static Sitting Balance Ability Normal Dynamic Sitting Balance Ability Normal Standing Balance and Reactions Static Standing Balance Ability Good Dynamic Standing Balance Ability Good Device Used without AD M5 PT-IP Objective Assessments Start: 07/27/24 15:50 Freq: NEEDED Status: Active Protocol: Document 07/29/24 11:25 AB (Rec: 07/29/24 12:40 AB [id number]) Orientation Orientation/Cognition Level of Alertness Alert Orientation Name,Age,Birthday,Month,Place, Situation Language Function Ability No Deficits Noted Safety Awareness Understands Safety Issues Memory Description No Deficits Noted Gross Range of Motion Lower Extremity ROM Assessment Within Functional Limits Strength Lower Extremity Strength Assessment Within Functional Limits Coordination Assessment Gross Coordination Gross Coordination WNL Sensation Assessment Sensation Gross Sensation WNL Muscle Tone Muscle Tone WNL Yes M6 PT-IP Treatment Start: 07/27/24 15:50 Freq: NEEDED Status: Active Protocol: Document 07/29/24 11:25 AB (Rec: 07/29/24 12:40 AB [id number]) Physical Therapy Treatment Education Education Provided Safety M7 PT-IP Assessment and Plan Start: 07/27/24 15:50 Freq: NEEDED Status: Active Protocol: Document 07/29/24 11:25 AB (Rec: 07/29/24 12:40 AB [id number]) PT Summary Assessment and Plan Potential Rehabilitation Potential Good Status of Condition at Evaluation Stable Summary Impairments Pain,ROM,Strength,Balance, Coordination,Sensation,Tone, Cognition,Bed Mobility, Transfers,Gait,Activity Tolerance Assessment Summary pt is a 79 y/o F who is admitted for A-fib. pt with syncopal episodes. pt also has h/o vertigo. pt will go for outpt PT to address vertigo when she feels ready. Currently, pt does not want anything to address vertigo as this may trigger the dizziness per pt. pt is independent with bed mobility, SBA for transfers and ambulation without AD and CGA with stair climbing. pt lives with her family and will have assistance at home. pt may go home when medically stable. no further PT indicated at this time. Goals Bed Mobility Goal Independent Transfer Goal Independent Gait Goal Independent Gait Distance 200 Other Goals up/down 3 steps without rails mod I Frequency of Treatment Frequency Of Treatment Discharge Treatment Plan Physical Therapy Treatment Plan Bed Mobility Training,Transfer Training,Gait Training, Therapeutic Exercise,Balance Retraining,Discharge Planning, Hot or Cold Pack,Neuromuscular Re-ed,Coordination Retraining Recommendations To Nursing Amount of Assist Needed Standby Assistance Discharge Recommendations PT Discharge Recommendations Home with Assistance, Outpatient PT Transportation Needs at Discharge Private Vehicle
--- NOTE | 2024-07-29 14:19 | PC.NURSE ---
Discharge Note Pt discharged to home with spouse at 1220, escorted to hospital exit via wheelchair by staff member. Written and verbal d/c instructions given on afib, eliquis, amiodarone, and diltiazem. All questions answered. All belongings with pt including glasses, cell phone, and clothing.
== END 2024-07-29 12:20 | disposition home or self-care (01) | DRG 309 ==
LOC: ED 14:13 → AC 15:28 → ICU 16:08
PROVIDERS: Internal Medicine; Admitting Provider Internal Medicine; Emergency Provider Emergency Medicine; PCP Physician Assistant; Referring Provider Emergency Medicine; Visit Provider Internal Medicine
DX: I48.0 Paroxysmal atrial fibrillation (principal); I5A Non-ischemic myocardial injury (non-traumatic); I48.92 Unspecified atrial flutter; E78.5 Hyperlipidemia, unspecified; G89.29 Other chronic pain; M54.9 Dorsalgia, unspecified; R00.1 Bradycardia, unspecified; Z23 Encounter for immunization; Z87.891 Personal history of nicotine dependence
CPT/HCPCS: 36415; 71045; 80048; 80053; 82550; 83690; 83735; 84443; 84484; 85025; 85610; 85730; 87797; 90471; 90662; 93005; 93306; 96361; 96365; 96366; 97162; 97530; 99284; 99285; J0282; J3475

== ENCOUNTER 2024-08-21 14:29 | Emergency (ER) | payer MEDICARE, OTHER, SELFPAY ==
[2024-07-26 15:37] VITALS: BMI 22.6
[2024-08-21] VITALS (8 sets, daily range): BP systolic 154–187; BP diastolic 72–96; PULSE 47–58; RESP 15–23; TEMP 36.5; O2SAT 98–100; BMI 22.6
--- NOTE | 2024-08-21 14:53 | EKG_ITS ---
[address] [address] Test Date: 2024-08-21 Pat Name: Virgen Martinez Department: [facility] Room: Gender: Female Leader Writer: Hever MUNOZ RN : 1945 Requested By: Order Number: [id number] Reading MD: Yao Patton MD Measurements Intervals [place] Rate: 48 P: 46 [place]: 160 QRS: 15 QRSD: 94 T: 30 QT: 544 QTc: 485 Interpretive Statements Sinus bradycardia Electronically Signed On 08-22-2024 16:16:52 PST by Yao Patton MD
--- NOTE | 2024-08-21 14:53 | DI.RAD.S_ITS ---
PROCEDURE: XR CHEST 1V INDICATIONS: chest pain TECHNIQUE: One view of the chest was acquired. COMPARISON: [facility], CR, XR CHEST 1V, 07/26/2024, 12:59. [facility], CR, XR CHEST 2V, 12/27/2022, 9:25. FINDINGS: Surgical changes and devices: None. Lungs and pleura: Lungs are clear. No pleural effusions or pneumothorax. Mediastinum: Mediastinal contours appear normal. Heart size is normal. Bones and chest wall: No suspicious bony lesions. Overlying soft tissues appear unremarkable. IMPRESSION: No acute cardiopulmonary abnormality is seen. Dictated by: Anselmo Brooks M.D. on 08/21/2024 at 15:51 Approved by: Anselmo Brooks M.D. on 08/21/2024 at 15:51
[2024-08-21 15:19] LABS: Add Manual Diff / Slide Review NO; Basophils Absolute Auto 100 /uL (0-100); Basophils Percent Auto 0.7 % (0-2); Eosinophils Absolute Auto 200 /uL (0-450); Eosinophils Percent Auto 2.3 % (2-4); Hematocrit 39.4 % (36-46); Hemoglobin 13.2 g/dL (12.0-16.0); Lymphocytes Absolute Auto 2400 /uL (1100-4500); Lymphocytes Percent Auto 30.9 % (25-40); Mean Corpuscular HGB Conc 33.5 % (30-36); Mean Corpuscular Volume 92.3 fL (80-100); Monocytes Absolute Auto 900 /uL (0-900); Monocytes Percent Auto 11.4 % (3-14); Neutrophils Absolute Auto 4200 /uL (1500-7000); Neutrophils Percent Auto 54.7 % (50-75); Platelet Count 304 X10^3/uL (150-400); Red Blood Cell Count 4.27 X10^6/uL (4.0-5.2); White Blood Cell Count 7.7 X10^3/uL (4.5-11.0)
[2024-08-21 15:26] LABS: INR 1.3 (0.9-1.3); Prothrombin Time 14.8 SECONDS (9.4-12.5)
[2024-08-21 15:29] LABS: Alanine Aminotransferase 29 IU/L (<35); Albumin 4.4 g/dL (3.5-5.0); Albumin Globulin Ratio 1.8 (1.0-2.8); Alkaline Phosphatase 84 U/L (38-126); Aspartate Aminotransferase 35 IU/L (14-36); BUN Creatinine Ratio 16.5 (6-22); Bilirubin Total 0.8 mg/dL (0.2-1.3); Blood Urea Nitrogen 15 mg/dL (7-17); Calcium 9.3 mg/dL (8.4-10.2); Carbon Dioxide 26 mmol/L (22-32); Chloride 106 mmol/L (98-107); Creatine Kinase 90 U/L (30-135); Estimated Glomerular Filt Rate > 60 mL/min (>60); Globulin 2.5 g/dL (1.7-4.1); Glucose 96 mg/dL (80-110); HEMOLYSIS < 15 (0-50); Lipase 56 U/L (23-300); Magnesium 2.1 mg/dL (1.6-2.3); PTT Partial Thromboplastin Tim 37 SECONDS (25.1-36.5); Potassium 3.7 mmol/L (3.4-5.1); Sodium 140 mmol/L (137-145); Total Protein 6.9 g/dL (6.3-8.2)
[2024-08-21 15:40] LABS: NT-proBNP (BNP-Adult 18+) 397 pg/mL (<450); Troponin I < 0.012 ng/mL (0.01-0.034)
--- NOTE | 2024-08-21 17:04 | PC.NURSE ---
Patient here in department for reports of low BP at home and feeling very dizzy and coming close to passing out, lowest was 80's systolic. Patient is hypertensive in department. Recently admitted here for AFib, patient currently taking diltizem, amiodarone, eliquis. Denies pain, SOB
--- NOTE | 2024-08-21 17:22 | ED.DIZZY ---
HPI - Dizziness General Chief Complaint: Dizziness Stated Complaint: Low BP Time Seen by Provider: 08/21/24 16:37 Source: patient, RN notes reviewed and old records reviewed Mode of arrival: Family Vehicle Limitations: no limitations History of Present Illness HPI Narrative: 79-year-old female history of paroxysmal atrial fibrillation, dyslipidemia admitted 07/26/24 and discharged on 07/29/2024 for AFib with RVR was not previously anticoagulated but was started on Eliquis, patient received metoprolol in the hospital but was ultimately discharged home on amiodarone and diltiazem. Patient's current dosing as apixaban 5 mg b.i.d., diltiazem 180 mg daily, amiodarone 100mg daily. Patient comes in with complaint of of feeling very lightheaded like she might pass out. She states this was about 3 hours after she took her home medications. It has since resolved. She does have little bit of vertigo but states that is her normal baseline she gets fed intermittently. She denies any chest pain no shortness of breath no syncope, no diaphoresis no nausea or vomiting. No issues with bowel movements denies any dysuria, urgency. Denies any swelling in extremities states she has titrated down her amiodarone she was at 100 mg daily, still taking her Eliquis twice daily and her diltiazem. States her only other medication is atorvastatin patient states no prior cardiac interventions she has had cataract surgery and Lasix surgery. She has not appointment in September with Cardiology. Former smoker, occasional alcohol, no recreational drugs. Patient has been ambulating in the department without issue. Related Data Home Medications Medication Instructions Recorded Confirmed atorvastatin 20 mg tablet 20 mg PO BEDTIME 11/07/23 07/26/24 timolol 0.5 % eye drops 1 drp EYE-BOTH BID 11/07/23 07/26/24 Previous Rx's Medication Instructions Recorded amiodarone 100 mg tablet 100 mg PO DAILY 90 days #90 tabs 07/29/24 apixaban 5 mg tablet (Eliquis) 5 mg PO BID 90 days #180 tabs 07/29/24 diltiazem HCl 180 mg 180 mg PO DAILY 90 days #90 caps 07/29/24 capsule,extended release 24 hr (Cardizem CD) Allergies Allergy/AdvReac Type Severity Reaction Status Date / Time venlafaxine [From EFFEXOR] Allergy Mild nightmares Verified 07/26/24 13:37 Review of Systems Review of Systems ROS Unobtainable: All systems reviewed & are unremarkable except as noted in HPI and below Patient History Medical History Hyperlipemia Paroxysmal atrial fibrillation History of melanoma Surgical History H/O: hysterectomy Social History marital status: details: ALSO, LIVES WITH ADULT SON AND HIS . household members: spouse and family lives independently: Yes occupational status: previously employed Smoking Status: Former smoker alcohol intake: current substance use type: does not use Smoking Status: Former smoker alcohol intake frequency: 0-2 drinks per day Exam Narrative Exam Narrative: GENERAL: Alert and oriented x three, well-appearing female in no acute distress HEENT: Head normocephalic, atraumatic, EOMI, pupils reactive, face symmetric, moist mucous membranes NECK: Supple, full range of motion CARDIOVASCULAR: Regular rate and rhythm without murmurs, rubs or gallops. No JVD. No edema. RESPIRATORY: Breath sounds equal bilaterally, no wheezes rales or rhonchi. No tachypnea or accessory muscle use. ABDOMEN: Soft, nontender. Normoactive bowel sounds all 4 quadrants. No guarding or rebound, rigidity, no mass : No CVA tenderness EXTREMITIES: Normal range of motion, no clubbing or edema. Neurovascularly intact NEUROLOGICAL: Cranial nerves II through XII grossly intact. Moving all extremities SKIN: Warm, dry, no petechiae, no rashes or lesions. Initial Vital Signs Initial Vital Signs: Vital Signs Temperature 97.7 F 08/21/24 14:46 Pulse Rate 47 L 08/21/24 14:46 Respiratory Rate 16 08/21/24 14:46 Blood Pressure 154/72 H 08/21/24 14:46 Pulse Oximetry 98 08/21/24 14:46 Oxygen Delivery Method Room Air 08/21/24 14:46 Course Orders Ordered: ED Orders 08/21/24 14:53 XR chest 1V Stat EKG-12 Lead Stat 08/21/24 15:00 Complete Blood Count AUTO DIFF Stat Comprehensive Metabolic Panel Stat Lipase Stat Magnesium Stat NT-proBNP (BNP-Adult 18+) Stat PTT Partial Thromboplastin Mike Stat Prothrombin Time INR Stat Troponin & CK Cardiac Panel Stat Vital Signs Vital signs: Vital Signs - 8 hr 08/21/24 14:46 08/21/24 16:08 08/21/24 16:11 Temperature 97.7 F Pulse Rate 47 L 53 L Respiratory Rate 16 15 Blood Pressure 154/72 H 183/81 H Pulse Oximetry 98 100 Oxygen Delivery Method Room Air 08/21/24 16:11 08/21/24 16:30 08/21/24 16:30 Temperature Pulse Rate 51 L 50 L Respiratory Rate 20 Blood Pressure 182/96 H Pulse Oximetry 100 100 Oxygen Delivery Method 08/21/24 17:00 08/21/24 17:01 08/21/24 17:01 Temperature Pulse Rate 50 L 51 L Respiratory Rate Blood Pressure 179/83 H Pulse Oximetry 98 98 Oxygen Delivery Method 08/21/24 17:30 08/21/24 17:30 Temperature Pulse Rate 51 L Respiratory Rate 23 Blood Pressure 177/83 H Pulse Oximetry 99 Oxygen Delivery Method MDM - Dizziness Lab Data 08/21/24 15:00 08/21/24 15:00 Labs: Lab Results 08/21/24 Range/Units 15:00 WBC 7.7 (4.5-11.0) X10^3/uL RBC 4.27 (4.0-5.2) X10^6/uL Hgb 13.2 (12.0-16.0) g/dL Hct 39.4 (36-46) % MCV 92.3 (80-100) fL MCH 31.0 (26-34) PG MCHC 33.5 (30-36) % RDW 14.0 (11.6-14.8) % Plt Count 304 (150-400) X10^3/uL Neut % (Auto) 54.7 (50-75) % Lymph % (Auto) 30.9 (25-40) % [place] % (Auto) 11.4 (3-14) % Eos % (Auto) 2.3 (2-4) % Baso % (Auto) 0.7 (0-2) % Neut # (Auto) 4200 (3875-7666) /uL Lymph # (Auto) 2400 (9359-7845) /uL [place] # (Auto) 900 (0-900) /uL Eos # (Auto) 200 (0-450) /uL Baso # (Auto) 100 (0-100) /uL PT 14.8 H (9.4-12.5) SECONDS INR 1.3 (0.9-1.3) APTT 37 H (25.1-36.5) SECONDS Sodium 140 (137-145) mmol/L Potassium 3.7 (3.4-5.1) mmol/L Chloride 106 (98-107) mmol/L Carbon Dioxide 26 (22-32) mmol/L BUN 15 (7-17) mg/dL Creatinine 0.91 (0.52-1.04) mg/dL Estimated GFR > 60 (>60) mL/min BUN/Creatinine Ratio 16.5 (6-22) Glucose 96 (80-110) mg/dL Calcium 9.3 (8.4-10.2) mg/dL Magnesium 2.1 (1.6-2.3) mg/dL Total Bilirubin 0.8 (0.2-1.3) mg/dL AST 35 (14-36) IU/L ALT 29 (<35) IU/L Alkaline Phosphatase 84 (38-126) U/L Total Creatine Kinase 90 (30-135) U/L Troponin I < 0.012 (0.01-0.034) ng/mL NT-Pro-B Natriuret Pep 397 (<450) pg/mL Total Protein 6.9 (6.3-8.2) g/dL Albumin 4.4 (3.5-5.0) g/dL Globulin 2.5 (1.7-4.1) g/dL Albumin/Globulin Ratio 1.8 (1.0-2.8) Lipase 56 (23-300) U/L Imaging Data Chest x-ray: Radiologist's Impression: [address] [address] XRay Report Signed Patient: Virgen Martinez MR#: [id number] : 1945 Acct:[id number] Age/Sex: 79 / F Date of Service: 08/21/24 Loc: ED Accession Number: [id number] Procedure: XR chest 1V Ordering Provider: Claudine Narvaez D.O. PROCEDURE: XR CHEST 1V INDICATIONS: chest pain TECHNIQUE: One view of the chest was acquired. COMPARISON: [facility], CR, XR CHEST 1V, 07/26/2024, 12:59. [facility], CR, XR CHEST 2V, 12/27/2022, 9:25. FINDINGS: Surgical changes and devices: None. Lungs and pleura: Lungs are clear. No pleural effusions or pneumothorax. Mediastinum: Mediastinal contours appear normal. Heart size is normal. Bones and chest wall: No suspicious bony lesions. Overlying soft tissues appear unremarkable. IMPRESSION: No acute cardiopulmonary abnormality is seen. Dictated by: Anselmo Brooks M.D. on 08/21/2024 at 15:51 Approved by: Anselmo Brooks M.D. on 08/21/2024 at 15:51 ECG Data Attestation: I personally reviewed and interpreted this ECG as follows: Prior ECG tracings: available for review Interpretation: Sinus bradycardia rate of 48 TN 160 QRS of 94 QTC of 45, no acute ST elevation. Sinus bradycardia rate of 48 TN 160 QRS of 94 QTC 485, nonspecific change patient's EKG overall appears similar. MDM Narrative Medical decision making narrative: 79-year-old who describes feeling dizzy earlier today states blood pressure was low at in the 80s systolic. Self transported via private auto in here patient has been more hypertensive but has been bradycardic with a rate in the 50s in July patient's heart rate appears to be consistently in the 60s. Patient states she feels much improved. Has not had any persistent symptoms heart rates been in the 50s but she has been bit hypertensive. Appears her normal baseline that is about 60s. Shows sinus bradycardia rate of 48 specific change appears similar to prior from 07/28/2024 Chest x-ray shows no acute change EKG shows sinus bradycardia rate of 48 nonspecific change. Labs show normal CBC, INR is 1.3 electrolytes are normal with a potassium of 3.7 BUN 15 creatinine 0.91 glucose of 96 troponins less than 0.012 with a BNP of 397. Patient had echo on 07/26/2024 EF of 55-60% left atrium moderately dilated no obvious focal wall motion abnormalities noted but poor endocardial definition reduce his sensitivity. Diastolic function could not be accurately assessed due to AFib right ventricle was normal in size and function left atrium is moderately dilated right atrium was normal in size. No pericardial effusion. Aortic valve was mildly calcified mild mitral annular calcification with mild tricuspid regurg. Discussed with patient and continue to monitor blood pressure heart rate she has been just recently bought a cuff. We will have her continue her current medications. Plan for follow up with Cardiology. Discussed with patient if she was having any recurrent symptoms she should be re-evaluated. She has been ambulating in the department without issue. She was felt improved since earlier today. Discharge Plan Departure Patient Disposition: Home Clinical Impression: Lightheadedness Activity Restrictions/Additional Instructions: I hope you continue to feel improved, please follow up with your appointment with Cardiology. If you are having mild but recurrent symptoms please call to move your appointment to a sooner date. Would recommend you continue to monitor your blood pressure to see with the averages over time. I would also include your heart rate if you are blood pressure cuff provides this as well. Continue your current home medications as prescribed. Please return for recurrent episodes of lightheadedness or passing out, new chest pain, shortness of breath, diaphoresis or sweatiness, nausea or vomiting, new swelling of your extremities or other new or concerning changes. Prescriptions: No Action atorvastatin 20 mg tablet 20 mg PO BEDTIME timolol 0.5 % drops 1 drp EYE-BOTH BID Eliquis 5 mg Tablet 5 mg PO BID 90 Days Qty: 180 0RF diltiazem HCl [Cardizem CD] 180 mg Capsule,Extended Release 24hr 180 mg PO DAILY 90 Days Qty: 90 0RF amiodarone 100 mg tablet 100 mg PO DAILY 90 Days Qty: 90 0RF Rx Instructions: Take one tab daily after completion of 3 week loading dose sent separately Referrals: Fern Mayes PA-C [Primary Care Provider] - Stand Alone Forms: Patient Portal/API/Survey
== END 2024-08-21 18:38 | disposition home or self-care (01) ==
PROVIDERS: Emergency Provider Emergency Medicine; PCP Physician Assistant
DX: R42 Dizziness and giddiness (principal); R00.1 Bradycardia, unspecified; I10 Essential (primary) hypertension; Z87.891 Personal history of nicotine dependence; Z79.01 Long term (current) use of anticoagulants
CPT/HCPCS: 36415; 71045; 80053; 82550; 83690; 83735; 83880; 84484; 85025; 85610; 85730; 93005; 99283; 99284

== ENCOUNTER → 2025-01-15 10:17 | Outpatient (CLI) | payer MEDICARE, OTHER, SELFPAY ==
[2024-07-26 15:37] VITALS: BMI 22.6
--- NOTE | 2025-01-15 10:18 | DI.CT.S_ITS ---
PROCEDURE: CT ANGIO CHEST INDICATIONS: AFIB TECHNIQUE: After the administration of intravenous contrast, 3 mm thick sections acquired from the pulmonary apices to the posterior costophrenic angles. 3-dimensional maximum intensity projection (MIP) coronal reformats were then acquired parallel to the pulmonary veins. For radiation dose reduction, the following was used: automated exposure control, adjustment of mA and/or kV according to patient size. COMPARISON: None. FINDINGS: Image quality: Excellent. Pulmonary veins: 4 pulmonary veins are identified. * Right superior pulmonary vein: 1.6 cm diameter, 2.1 cm from ostium to 1st order branch. * Right inferior pulmonary vein: 1.5 cm diameter, 2.1 cm from ostium to 1st order branch. * Left superior pulmonary vein: 1.4 cm diameter, 2.2 cm from ostium to 1st order branch. * Left inferior pulmonary vein: 1.5 cm diameter, 1.9 cm from ostium to 1st order branch. * Supernumerary pulmonary veins: none. Lungs and pleura: Lungs are clear. No pleural effusions or pneumothorax. Central and peripheral airways are patent. Mediastinum: Heart size is normal, without pericardial effusion. No mediastinal or hilar adenopathy. Thoracic aorta and pulmonary arteries are normal in caliber and enhancement. Esophagus is normal in caliber, without hiatal hernia. Bones and chest wall: No suspicious bony lesions. Ribs and thoracic spine appear intact throughout. No axillary or supraclavicular adenopathy. Thyroid gland demonstrates no lesions requiring follow-up. Abdomen: Visualized upper abdominal solid organs appear normal in the early arterial phase of enhancement. IMPRESSION: Venous ablation mapping as above. Dictated by: Deandra Sam M.D. on 01/15/2025 at 13:05 Approved by: Deandra Sam M.D. on 01/15/2025 at 13:07
[2025-01-15 10:54] LABS: Estimated Glomerular Filt Rate > 60 mL/min (>60)
== END ==
PROVIDERS: Radiology Neuroradiology; PCP Physician Assistant; Referring Provider Internal Medicine Cardiovascular Disease; Visit Provider Internal Medicine Cardiovascular Disease
DX: I48.91 Unspecified atrial fibrillation (principal)
CPT/HCPCS: 36415; 71275; 82565; Q9967